=== PATIENT | male | born 1950 | race Caucasian/White ===

== ENCOUNTER 2017-10-01 12:43 | Inpatient (IN) | payer MEDICARE ==
[2017-10-01] VITALS (11 sets, daily range): BP systolic 121–153; BP diastolic 63–89; PULSE 74–103; RESP 16–20; TEMP 98.9–100.5; O2SAT 97–100
[~2017-10-01] VITALS: Ht 170.2 cm; Wt 79.4 kg
[~2017-10-01 12:43] MED LIST: [UNRECOGNIZED DRUG - REMARK]
[2017-10-01] MEDS ORDERED: IOHEXOL 350 MG/ML 100 ML BTL (for Cath Lab) OTHER ONE (12:44)
[2017-10-01] MEDS ORDERED: TOFA5TAB PO (13:30)
[2017-10-01] MEDS ORDERED: NITROGLYCERIN 0.4 MG SL 25 TABS/BTL SL STA (13:31)
[2017-10-01] MEDS ORDERED: HEPARIN SODIUM - IV 10,000 UNITS/10 ML VIAL IV PUSH STA (13:31)
[2017-10-01] MEDS ORDERED: ASPIRIN 81 MG CHEW TAB PO STA (13:31)
--- NOTE | 2017-10-01 13:33 | PD ---
HPI Chief Complaint: Chest Pain Time Seen by Provider: 13:19 Travel History International Travel<30 days: No Contact w/Intl Traveler<30days: No Traveled to known affect area: No History of Present Illness HPI Patient presented to the emergency department today because he had a redness to his butt cheek which apparently on Wednesday he was bitten by a spider? He had developed redness around his left buttock. Once I get the patient to focus about his chest discomfort, patient stated that he has had intermittent chest tightness since 5 AM this morning and it became more consistent and persistent over the last 2 hours, nonradiating, 5 out of 10, some slight shortness of breath. Patient denies any aggravating or alleviating factors. Patient denies any associated factors such as fever cough Place syndrome of [address] 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 Allergy to penicillin and statins both of them cause hives Past surgical history patient denies past medical Past medical history significant for hypercholesterolemia hypertension and the patient is a half a pack smoker daily PFSH Past Medical History Diminished Hearing: No Kidney Stones: Yes Immunizations Current: No Ulcer: Yes (COLITIS) Tetanus Vaccination: Unknown Social History Alcohol Use: Yes (2 DRINKS DAILY) Tobacco Use: Yes (1/2 PPD) Substance Use: No Allergies-Medications (Allergen,Severity, Reaction): Coded Allergies: penicillin G (Unverified Allergy, Severe, Hives, 10/02/17) Patient reports to me he has tolerated Keflex in past with no side effects. Uncoded Allergies: STATINS (Adverse Reaction, Intermediate, CRAMPS IN LEGS AND BACK, 01/24/13) Reported Meds & Prescriptions Reported Meds & Active Scripts Active Reported Xeljanz (Tofacitinib) 5 Mg Tab 10 Mg PO BID Review of Systems General / Constitutional: No: Fever Eyes: No: Visual changes HENT: No: Headaches Cardiovascular: Positive: Chest Pain or Discomfort Respiratory: No: Shortness of Breath Gastrointestinal: No: Abdominal Pain Genitourinary: No: Dysuria Musculoskeletal: No: Pain Skin: No Rash Neurologic: No: Weakness Psychiatric: No: Depression Endocrine: No: Polydipsia Hematologic/Lymphatic: No: Easy Bruising Physical Exam Narrative GENERAL: SKIN: Warm and dry. HEAD: Atraumatic. Normocephalic. EYES: Pupils equal and round. No scleral icterus. No injection or drainage. ENT: No nasal bleeding or discharge. Mucous membranes pink and moist. NECK: Trachea midline. No JVD. CARDIOVASCULAR: Regular rate and rhythm. RESPIRATORY: No accessory muscle use. Clear to auscultation. Breath sounds equal bilaterally. GASTROINTESTINAL: Abdomen soft, non-tender, nondistended. LEFT GLUTEUS REGION HAS PUNCTURE WITH CELLULITIC CHANGES ORANGE SIZE IN DIAMETER MUSCULOSKELETAL: Extremities without clubbing, cyanosis, or edema. No obvious deformities. NEUROLOGICAL: Awake and alert. No obvious cranial nerve deficits. Motor grossly within normal limits. Five out of 5 muscle strength in the arms and legs. Normal speech. PSYCHIATRIC: Appropriate mood and affect; insight and judgment normal. Data Data Last Documented VS Vital Signs Date Time Temp Pulse Resp B/P (MAP) Pulse Ox O2 Delivery O2 Flow Rate FiO2 10/01/17 15:06 84 16 121/63 (82) 100 10/01/17 13:23 Room Air 10/01/17 12:46 98.9 Orders Orders Electrocardiogram (10/01/17 13:03) Complete Blood Count With Diff (10/01/17 13:03) Basic Metabolic Panel (Bmp) (10/01/17 13:03) Ckmb (Isoenzyme) Profile (10/01/17 13:03) Troponin I (10/01/17 13:03) Nitroglycerin Sl (Nitrostat Sl) (10/01/17 13:31) Heparin Inj (Heparin Inj) (10/01/17 13:31) Metoprolol Tartrate Inj (Lopressor Inj) (10/01/17 13:45) Aspirin Chew (Aspirin Chew) (10/01/17 13:31) Cardiac Catheterization (10/01/17 ) I-Stat Profile (10/01/17 13:20) Chest, Single Ap (10/01/17 ) Vital Signs (Adult) Q15MX4,Q30MX4,Q1HX4 (10/01/17 14:33) Activity Bed Rest (10/01/17 14:33) Activity Oob Ad Nini (10/01/17 14:33) Instruction (10/01/17 14:33) Diet Heart Healthy (10/01/17 Dinner) Notify Dr: Other (10/01/17 14:33) ^ Teach Patient (10/01/17 14:33) [facility] (10/01/17 14:45) Bacitracin Oint Packet (Bacitracin Oint (10/01/17 14:45) Consult Hospitalist (10/01/17 ) Electronic System Engineer / Telemetry SHEELA.Q8H (10/01/17 14:33) Iohexol 350 Inj (Clin Nurse) (Omnipaque 35 (10/01/17 12:44) Admit To Inpatient (10/01/17 ) Inpatient Certification (10/01/17 ) Physician Name Changes (10/01/17 ) Admit Order (Ed Use Only) (10/01/17 15:10) (Hub Use Only)Inp Phy Cons/Ref (10/01/17 ) ^ Other Nursing Orders (10/01/17 15:18) Us Soft Tissue (10/01/17 ) Vancomycin Consult Pharmacy (Vancomycin (10/01/17 15:30) Acetaminophen (Tylenol) (10/01/17 15:30) Ondansetron Inj (Zofran Inj) (10/01/17 15:30) Acetamin-Hydrocod 325-5 Mg ([place] 5-325 (10/01/17 15:30) Alcohol Withdrawal Asmt-Ciwa Q4HX18 (10/01/17 15:20) ^ Seizure Precautions (10/01/17 15:20) Sodium Chloride 0.9% Flush (Ns Flush) (10/01/17 15:30) Sodium Chloride 0.9% Flush (Ns Flush) (10/01/17 21:00) Flumazenil Inj (Romazicon Inj) (10/01/17 15:30) Lorazepam (Ativan) (10/01/17 15:30) Lorazepam Inj (Ativan Inj) (10/01/17 15:30) Lorazepam (Ativan) (10/01/17 15:30) Lorazepam Inj (Ativan Inj) (10/01/17 15:30) Lorazepam Inj (Ativan Inj) (10/01/17 15:30) Lorazepam Inj (Ativan Inj) (10/01/17 15:30) CKMB (10/01/17 19:10) CKMB% (10/01/17 19:10) Echo 2d Comp With Doppler (10/02/17 ) Labs Laboratory Tests Test 10/01/17 13:20 10/01/17 13:30 Bedside Hemoglobin 17.3 G/DL Bedside Hematocrit 51.0 % Bedside Sodium 136 MMOL/L Bedside Potassium 6.0 MMOL/L Bedside Chloride 100 MMOL/L Bedside Blood Urea Nitrogen 15 MG/DL Bedside Creatinine 1.2 MG/DL Bedside Glucose 248 MG/DL White Blood Count 9.7 TH/MM3 Red Blood Count 5.16 MIL/MM3 Hemoglobin 16.8 GM/DL Hematocrit 49.2 % Mean Corpuscular Volume 95.3 FL Mean Corpuscular Hemoglobin 32.6 PG Mean Corpuscular Hemoglobin Concent 34.2 % Red Cell Distribution Width 14.1 % Platelet Count 211 TH/MM3 Mean Platelet Volume 9.6 FL Neutrophils (%) (Auto) 90.2 % Lymphocytes (%) (Auto) 2.0 % Monocytes (%) (Auto) 6.7 % Eosinophils (%) (Auto) 1.1 % Basophils (%) (Auto) 0.0 % Neutrophils # (Auto) 8.7 TH/MM3 Lymphocytes # (Auto) 0.2 TH/MM3 Monocytes # (Auto) 0.7 TH/MM3 Eosinophils # (Auto) 0.1 TH/MM3 Basophils # (Auto) 0.0 TH/MM3 CBC Comment DIFF FINAL Differential Comment MDM Medical Decision Making Medical Screen Exam Complete: Yes Emergency Medical Condition: Yes Medical Record Reviewed: Yes Interpretation(s) EKG #1 1309 /V2 STEMI, WITH ST DEPRESSIONS INFERIORLY EKG#2 1328 /V2 STEM[address] DEPRESSIONS INFERIORLY STEMI ALERT CALLED [facility] RETURNED CALL AT 1334 AND ACCEPTED, SENT TO [facility] DR HANDY IS ON HIS WAY IN. Differential Diagnosis STEMI V NONSTEMI V PNA V PTX V CELLULITIS Narrative Course Patient sent to Clin Nurse at 1342, Dr. Handy already aware and on his way. Diagnosis Primary Impression: Acute ST elevation myocardial infarction (STEMI) of septum Additional Impression: Cellulitis, gluteal Admitting Information Admitting Physician Requests: Observation Darrin Noriega MD Oct 01, 2017 13:33
[2017-10-01] MEDS ORDERED: METOPROLOL TARTRATE 5 MG/5 ML VIAL IV PUSH SCH (13:45)
[2017-10-01 13:51] LABS: AUTOMATED NEUTROPHIL # 8.7 TH/MM3 (1.8-7.7); EOSINOPHIL # 0.1 TH/MM3 (0-0.4); EOSINOPHIL % 1.1 % (0.0-4.0); HEMATOCRIT 49.2 % (39.0-51.0); HEMOGLOBIN 16.8 GM/DL (13.0-17.0); LYMPHOCYTE # 0.2 TH/MM3 (1.0-4.8); MEAN CELL VOLUME 95.3 FL (80.0-100.0); MEAN CORPUSCULAR HEMOGLOBIN 32.6 PG (27.0-34.0); MEAN CORPUSCULAR HGB CONC 34.2 % (32.0-36.0); MEAN PLATELET VOLUME 9.6 FL (7.0-11.0); MONO % 6.7 % (0.0-8.0); MONOCYTE # 0.7 TH/MM3 (0-0.9); NEUT % 90.2 % (16.0-70.0); PLATELET COUNT 211 TH/MM3 (150-450); RED BLOOD COUNT 5.16 MIL/MM3 (4.50-5.90); RED CELL DISTRIBUTION WIDTH 14.1 % (11.6-17.2); WHITE BLOOD COUNT 9.7 TH/MM3 (4.0-11.0)
--- NOTE | 2017-10-01 14:04 | RADRPT ---
EXAM DATE/TIME: 10/01/2017 13:37 [facility] COMPARISON: No previous studies available for comparison. INDICATIONS : Stemi alert. MEDICAL HISTORY : None. SURGICAL HISTORY : None. ENCOUNTER: Initial ACUITY: 1 day PAIN SCORE: 10/10 LOCATION: Left upper chest FINDINGS: A single view of the chest demonstrates the lungs to be symmetrically aerated without evidence of mas s, infiltrate or effusion. The cardiomediastinal contours are unremarkable. Osseous structures are intact. CONCLUSION: No acute disease. Mynor Dyer MD FACR on October 01, 2017 at 14:02 Board Certified Radiologist. This report was verified electronically.
[2017-10-01] MEDS ORDERED: BACITRACIN OINT 0.9 GM PKT TOP ONE (14:45)
[2017-10-01] MEDS ORDERED: MISC INFORMATION XX ONE (14:45)
[2017-10-01] MEDS ORDERED: ACETAMINOPHEN/HYDROcodone 325 MG/5 MG TAB PO PRN (15:30)
[2017-10-01] MEDS ORDERED: LORazepam 2 MG/ML VIAL IV PUSH PRN ×4 (15:30)
[2017-10-01] MEDS ORDERED: VANCOMYCIN INJ 1,000 MG in SODIUM CHLOR 0.9% 250 ML INJ 250 ML IV SCH (15:30)
[2017-10-01] MEDS ORDERED: LORazepam 2 MG TAB PO PRN (15:30)
[2017-10-01] MEDS ORDERED: ONDANSETRON HCL 4 MG/2 ML VIAL IV PRN (15:30)
[2017-10-01] MEDS ORDERED: SODIUM CHLORIDE 0.9% FLUSH 10 ML FLUSH IV FLUSH PRN (15:30)
[2017-10-01] MEDS ORDERED: Vancomycin Consult Pharmacy 1 EA OTHER SCH (15:30)
[2017-10-01] MEDS ORDERED: FLUMAZENIL 0.5 MG/5 ML VIAL IV PUSH PRN (15:30)
--- NOTE | 2017-10-01 16:06 | HHI.HP ---
HPI Service [facility] Hospitalists Primary Care Physician Augie Fan MD, PhD Admission Diagnosis Chest pain, cellulitis Chief Complaint: Chest pain, cellulitis Travel History International Travel<30 Days: No Contact w/Intl Traveler <30 Da: No Traveled to Known Affected Are: No History of Present Illness Mr. Golden is a pleasant 67 y/o WM with diet controlled diabetes mellitus, ulcerative colitis, Bo's esophagus, alcohol and tobacco use and AAA. [place] [facility] [place] complaints of SOB and chest pain that began this morning. He reports that the pain began around 5AM, described as intermittent chest tightness which became more consistent and persistent about 2 hours prior to evaluation in the ED. He had some associated shortness of breath. No reported palpitations, dizziness, weakness or diaphoresis. Pt had EKG changes in the ED consistent with ST depression in the V1/V2 leads. STEMI alert was called and the pt was taken to the helper animal laboratory for LHC. The case was discussed with Dr. Carvajal post-procedurally and it was reported that his coronary arteries were clear. Pt was also noted to have some cellulitis on his left buttock. He reports that he woke up 5 days ago with what he presumed was a spider bite on his left buttock. The skin around the spider bite became increasingly read and started spreading. He did have some noted drainage from the wound 2 days ago. He was seen by his PCP, Dr. Rosario, yesterday for the buttock cellulitis and was started on Doxy which he had taken three doses prior to admission to the hospital today. Pt had not noticed much improvement in the cellulitis prior to admission. He denies any fevers or chills. Denies any nausea/vomiting, diarrhea , reflux, dysphagia, or abdominal pain. He denies any further chest pain or SOB currently. Review of Systems Constitutional: DENIES: Fever, Chills Eyes: DENIES: Vision loss Ears, nose, mouth, throat: DENIES: Hearing loss, Vertigo Respiratory: DENIES: Cough, Shortness of breath Cardiovascular: COMPLAINS OF: Chest pain, DENIES: Lower Extremity Edema Gastrointestinal: DENIES: Abdominal pain, Diarrhea, Nausea, Vomiting Genitourinary: DENIES: Dysuria Musculoskeletal: DENIES: Joint pain, Neck pain Integumentary: COMPLAINS OF: Abnormal pigmentation Neurologic: DENIES: Headache Psychiatric: DENIES: Confusion Past Family Social History Past Medical History Diet controlled diabetes mellitus, felt to be related to steroid use Ulcerative colitis AAA Bo's esophagus Alcohol use Tobacco use Memory deficits, short term Hyperlipidemia 2D echo (02/22/12) - LVH - EF 60-65% - Mild aortic stenosis Past Surgical History ACL transplant, right knee Bilateral carpal tunnel release Vasectomy Reported Medications Xeljanz (Tofacitinib) 10 Mg PO BID Tylenol PM ii PO HS Doxycycline 100mg po BID (started 09/30/17) Allergies: Coded Allergies: penicillin G (Unverified Allergy, Severe, 10/01/17) Uncoded Allergies: STATINS (Adverse Reaction, Intermediate, CRAMPS IN LEGS AND BACK, 01/24/13) Family History Father with hx of HTN Social History (+)Tobacco use, smokes 1/2 ppd x 30+ years (+)Alcohol use, 2-3 mixed drinks every evening Denies any illicit drug use 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 SKIN: Erythema on the left buttock measuring about 5-6cm in diameter with some central induration, minimal tenderness to palpation HEENT: Atraumatic. Normocephalic. No temporal or scalp tenderness. No scleral icterus. No injection or drainage. Uvula midline. Airway patent. NECK: Trachea midline, supple, nontender. CARDIO: Regular. RESP: CTA bilaterally. No wheezes, rales, or rhonchi. ABD: +BS, soft, non-tender, nondistended. EXT: Extremities without clubbing, cyanosis, or edema. NEURO: Awake and alert. Motor and sensory grossly within normal limits. Normal speech. Laboratory Laboratory Tests Test 10/01/17 13:20 10/01/17 13:30 Bedside Hemoglobin 17.3 Bedside Hematocrit 51.0 Bedside Sodium 136 Bedside Potassium 6.0 Bedside Chloride 100 Bedside Blood Urea Nitrogen 15 Bedside Creatinine 1.2 Bedside Glucose 248 White Blood Count 9.7 Red Blood Count 5.16 Hemoglobin 16.8 Hematocrit 49.2 Mean Corpuscular Volume 95.3 Mean Corpuscular Hemoglobin 32.6 Mean Corpuscular Hemoglobin Concent 34.2 Red Cell Distribution Width 14.1 Platelet Count 211 Mean Platelet Volume 9.6 Neutrophils (%) (Auto) 90.2 Lymphocytes (%) (Auto) 2.0 Monocytes (%) (Auto) 6.7 Eosinophils (%) (Auto) 1.1 Basophils (%) (Auto) 0.0 Neutrophils # (Auto) 8.7 Lymphocytes # (Auto) 0.2 Monocytes # (Auto) 0.7 Eosinophils # (Auto) 0.1 Basophils # (Auto) 0.0 CBC Comment DIFF FINAL Differential Comment Result Diagram: 10/01/17 1330 Imaging Last Impressions Chest X-Ray 10/01/17 0000 Signed Impressions: Service Date/Time: Sunday, October 01, 2017 13:37 - CONCLUSION: No acute disease. Mynor Dyer MD FACR Caprini VTE Risk Assessment Caprini VTE Risk Assessment: Mod/High Risk (score >= 2) Caprini Risk Assessment Model Point Value = 1 Point Value = 2 Point Value = 3 Point Value = 5 Age 41-60 Minor surgery BMI > 25 kg/m2 Swollen legs Varicose veins or History of unexplained or recurrent spontaneous Oral contraceptives or hormone replacement Sepsis (< 1 month) Serious lung disease, including pneumonia (< 1 month) Abnormal pulmonary function Acute myocardial infarction Congestive heart failure (< 1 month) History of inflammatory bowel disease Medical patient at bed rest Age 61-74 Arthroscopic surgery Major open surgery (> 45 min) Laparoscopic surgery (> 45 min) Malignancy Confined to bed (> 72 hours) Immobilizing plaster cast Central venous access Age >= 75 History of VTE Family history of VTE Factor V Leiden Prothrombin [id number] Lupus anticoagulant Anticardiolipin antibodies Elevated serum homocysteine Heparin-induced thrombocytopenia Other congenital or acquired thrombophilia Stroke (< 1 month) Elective arthroplasty Hip, pelvis, or leg fracture Acute spinal cord injury (< 1 month) Prophylaxis Regimen Total Risk Factor Score Risk Level Prophylaxis Regimen 0-1 Low Early ambulation 2 Moderate Order ONE of the following: *Sequential Compression Device (SCD) *Heparin 5000 units SQ BID 3-4 Higher Order ONE of the following medications: *Heparin 5000 units SQ TID *Enoxaparin/Lovenox 40 mg SQ daily (WT < 150 kg, CrCl > 30 mL/min) *Enoxaparin/Lovenox 30 mg SQ daily (WT < 150 kg, CrCl > 10-29 mL/min) *Enoxaparin/Lovenox 30 mg SQ BID (WT < 150 kg, CrCl > 30 mL/min) AND/OR *Sequential Compression Device (SCD) 5 or more Highest Order ONE of the following medications: *Heparin 5000 units SQ TID (Preferred with Epidurals) *Enoxaparin/Lovenox 40 mg SQ daily (WT < 150 kg, CrCl > 30 mL/min) *Enoxaparin/Lovenox 30 mg SQ daily (WT < 150 kg, CrCl > 10-29 mL/min) *Enoxaparin/Lovenox 30 mg SQ BID (WT < 150 kg, CrCl > 30 mL/min) AND *Sequential Compression Device (SCD) Assessment and Plan Problem List: (1) Chest pain ICD Codes: R07.9 - Chest pain, unspecified Status: Acute Plan: - Pt is a 67 y/o WM with diet controlled diabetes mellitus, ulcerative colitis, Bo's esophagus, alcohol and tobacco use and AAA. - Pt reported to the [place] [facility] [place] complaints of SOB and chest pain that began this morning. He reports that the pain began around 5AM, described as intermittent chest tightness which became more consistent and persistent about 2 hours prior to evaluation in the ED. He had some associated shortness of breath. - In the ED the pt had EKG changes with ST depression in the V1/V2 leads. STEMI alert was called and the pt was taken to the helper animal laboratory for [facility]. - The case was discussed with Dr. Carvajal post-procedurally and it was reported that his coronary arteries were clear. - he has hx of valvular heart disease, specifically aortic valve stenosis so 2D echo is ordered - Cardiology is following. (2) Cellulitis, gluteal ICD Codes: L03.317 - Cellulitis of buttock Status: Acute Plan: - Pt reported that he woke up 5 days ago with what he presumed was a spider bite on his left buttock. - The skin around the spider bite became increasingly read and started spreading. He did have some noted drainage from the wound 2 days ago. - He was seen by his PCP, Dr. Rosario, yesterday for the buttock cellulitis and was started on Doxy BID which he had taken three doses prior to admission to the hospital. - Start Vancomycin IV, pharmacy to consult - Nurse instructed to draw a line around the area of cellulitis to monitor to changes - Soft tissue US to assess for possible underlying abscess - Pain control PRN (3) Aortic valve stenosis ICD Codes: I35.0 - Nonrheumatic aortic (valve) stenosis Status: Chronic Plan: - See above - 2D echo ordered (4) Ulcerative colitis ICD Codes: K51.90 - Ulcerative colitis, unspecified, without complications Status: Chronic Plan: - Pt takes Xeljanz 10mg po BID at home, this is to be resumed (5) Alcohol use ICD Codes: Z78.9 - Other specified health status Status: Chronic Plan: - He is a daily alcohol user - CIWA protocol ordered - EtOH withdrawal precautions (6) Tobacco use ICD Codes: Z72.0 - Tobacco use Status: Chronic Plan: - recommended cessation Physician Certification 2 Midnight Certification Type: Admission for Inpatient Services Order for Inpatient Services The services are ordered in accordance with Medicare regulations or non- Medicare payer requirements, as applicable. In the case of services not specified as inpatient-only, they are appropriately provided as inpatient services in accordance with the 2-midnight benchmark. Estimated LOS (days): 3 3 days is the estimated time the patient will need to remain in the hospital, assuming treatment plan goals are met and no additional complications. Post-Hospital Plan: Home Daphney Clark Oct 01, 2017 16:06
[2017-10-01] MEDS ORDERED: VANCOMYCIN INJ 1,250 MG in SODIUM CHLOR 0.9% 250 ML INJ 250 ML IV ONE (17:00)
--- NOTE | 2017-10-01 18:45 | RADRPT ---
EXAM DATE/TIME: 10/01/2017 18:31 [facility] COMPARISON: No previous studies available for comparison. INDICATIONS : Abscess. MEDICAL HISTORY : Gastroesophageal reflux disease. Migraine. Ulcer. Kidney stones. Diabetes. SURGICAL HISTORY : Carpal tunnel syndrome. Right knee surgery. ENCOUNTER: Initial ACUITY: 2 weeks PAIN SCORE: 3/10 LOCATION: Left buttcocks. AREA EVALUATED: Left buttocks. FINDINGS: MASSES: None. FLUID COLLECTIONS: None. OTHER: Slightly increased vascularity in the superficial subcutaneous soft tissues on the left side compared to the right. CONCLUSION: Slight increase in the vascularity of the superficial subcutaneous soft tissues of the left buttocks. Otherwise no focal fluid collection or soft tissue mass Ronal Peoples MD on October 01, 2017 at 18:41 Board Certified Radiologist. This report was verified electronically.
[2017-10-01 19:49] LABS: BICARBONATE 26.9 MEQ/L (21.0-32.0); CALCIUM 8.9 MG/DL (8.5-10.1); CHLORIDE 101 MEQ/L (98-107); CREATININE 1.44 MG/DL (0.60-1.30); GLOMERULAR FILTRATION RATE 49 ML/MIN (>89); GLUCOSE,RANDOM 193 MG/DL (74-106); SODIUM (NA) 136 MEQ/L (136-145)
[2017-10-01 20:28] LABS: BLOOD UREA NITROGEN 11 MG/DL (7-18); TROPONIN I LESS THAN 0.02 NG/ML (0.02-0.05)
[2017-10-01] MEDS: SODIUM CHLORIDE 0.9% FLUSH 10 ML FLUSH IV FLUSH SCH (21:00)
[2017-10-01] MEDS ORDERED: TOFACITINIB 10 MG PO SCH (21:00)
[2017-10-01] MEDS ORDERED: CALCIUM CARBONATE 500 MG CHEWABLE TAB CHEW PRN (21:15)
[2017-10-02] VITALS (28 sets, daily range): BP systolic 105–158; BP diastolic 56–88; PULSE 61–100; RESP 12–20; TEMP 98.4–102.8; O2SAT 94–97
[2017-10-02 05:12] LABS: BICARBONATE 26.9 MEQ/L (21.0-32.0); CREATININE 1.23 MG/DL (0.60-1.30)
[2017-10-02] MEDS ORDERED: ALUMINUM/MAGNESIUM/SIMETH 30 ML CUP PO PRN (08:30)
--- NOTE | 2017-10-02 08:47 | HHI.PR ---
Subjective Remarks spreading rash over buttock and lower back. some pain with sitting but not severe. no n/v/f/c Objective Vitals heart reg lungcta abd s/nt ext no edema right buttock central lesion with spreading erythema over left buttock.. and blotchy area over right buttock and lower back..not very tender. no fluctuance some gluteal fold erythema Vital Signs Date Time Temp Pulse Resp B/P (MAP) Pulse Ox O2 Delivery O2 Flow Rate FiO2 10/02/17 06:17 63 10/02/17 05:06 61 10/02/17 04:07 73 10/02/17 03:54 98.6 65 137/74 (95) 97 10/02/17 03:49 62 10/02/17 02:06 68 10/02/17 01:00 68 10/02/17 00:42 98.4 74 118/69 (85) 97 10/02/17 00:00 72 10/01/17 23:00 74 10/01/17 22:00 82 10/01/17 21:00 84 10/01/17 20:00 88 10/01/17 20:00 100.5 88 129/70 (89) 97 10/01/17 19:00 87 10/01/17 18:05 84 10/01/17 17:20 76 10/01/17 16:00 82 10/01/17 15:06 84 16 121/63 (82) 100 10/01/17 13:23 98 18 99 Room Air 10/01/17 13:23 98 20 153/79 (103) 100 Room Air 10/01/17 12:46 98.9 103 16 149/89 (109) 98 Result Diagram: 10/01/17 1330 10/02/17 0323 Imaging Last Impressions Chest X-Ray 10/01/17 0000 Signed Impressions: Service Date/Time: Sunday, October 01, 2017 13:37 - CONCLUSION: No acute disease. Mynor Dyer MD FACR A/P Problem List: (1) Chest pain ICD Codes: R07.9 - Chest pain, unspecified Status: Acute Plan: - Pt is a 67 y/o WM with diet controlled diabetes mellitus, ulcerative colitis, Bo's esophagus, alcohol and tobacco use and AAA. - Pt reported to the ED at [facility] [place] with complaints of SOB and chest pain that began this morning. He reports that the pain began around 5AM, described as intermittent chest tightness which became more consistent and persistent about 2 hours prior to evaluation in the ED. He had some associated shortness of breath. - In the ED the pt had EKG changes with ST depression in the V1/V2 leads. STEMI alert was called and the pt was taken to the director of cath lab for LHC. - The case was discussed with Dr. Carvajal post-procedurally and it was reported that his coronary arteries were clear. - he has hx of valvular heart disease, specifically aortic valve stenosis so 2D echo is ordered - Cardiology is following. (2) Cellulitis, gluteal ICD Codes: L03.317 - Cellulitis of buttock Status: Acute Plan: - Pt reported that he woke up 5 days ago with what he presumed was a spider bite on his left buttock...but not confirmed - The skin around the spider bite became increasingly read and started spreading. He did have some noted drainage from the wound 2 days ago. - He was seen by his PCP, Dr. Fan on 09/30 for the buttock cellulitis and was started on Doxy BID which he had taken three doses prior to admission to the hospital. - Started Vancomycin IV on 10/01.... today the area of redness is spreading beyond the marked lines and now includes lower back. soft tissue u/s neg for abscess pt is immunosuppressed and will hold xeljanz ask ID opinion. pt allergic to pcn's (3) Aortic valve stenosis ICD Codes: I35.0 - Nonrheumatic aortic (valve) stenosis Status: Chronic Plan: - See above - 2D echo ordered (4) Ulcerative colitis ICD Codes: K51.90 - Ulcerative colitis, unspecified, without complications Status: Chronic Plan: - Pt takes Xeljanz 10mg po BID at home, hold (5) Alcohol use ICD Codes: Z78.9 - Other specified health status Status: Chronic Plan: - He is a daily alcohol user - CIWA protocol ordered - EtOH withdrawal precautions (6) Tobacco use ICD Codes: Z72.0 - Tobacco use Status: Chronic Plan: - recommended cessation Darshan Salazar MD Oct 02, 2017 08:47
[2017-10-02] MEDS ORDERED: CLINDAMYCIN INJ 900 MG in SODIUM CHLORIDE 0.9% INJ 100 ML IV ONE (09:00)
[2017-10-02] MEDS: MUPIROCIN 2% OINT 22 GM TUBE TOPICAL SCH ×3 (09:53→21:32)
[2017-10-02] MEDS: PANTOPRAZOLE SOD 40 MG DELAYED RELEASE TAB PO SCH ×2 (09:53→21:32)
[2017-10-02] MEDS: SODIUM CHLORIDE 0.9% FLUSH 10 ML FLUSH IV FLUSH SCH ×2 (09:53→21:00)
[2017-10-02] MEDS ORDERED: PNEUMOCOCCAL POLYVALENT INJ 25 MCG/0.5 ML SYR IM ONE (10:00)
[2017-10-02] MEDS: LORazepam 1 MG TAB PO PRN (11:59)
--- NOTE | 2017-10-02 13:19 | PD.ID.CON ---
History of Present Illness Service ID Consult Requested By Reason for Consult Evaluation and Mment of Sacral cellulitis. Primary Care Physician Augie Fan MD, PhD Diagnoses: History of Present Illness Mr. Golden is a pleasant 67 y/o WM with diet controlled diabetes mellitus, ulcerative colitis, Bo's esophagus, alcohol and tobacco use and AAA. Pt reported to the ED at [facility] with complaints of SOB and chest pain that began on morning of admission. STEMI alert was called and patient was s/b and underwent Cardiac cath [facility] and reportedly his coronary arteries are clear. Pt was also noted to have some cellulitis on his left buttock. He reports that he woke up 5 days ago with what he presumed was a spider bite on his left buttock. The skin around the spider bite became increasingly read and started spreading. He did have some noted drainage from the wound 2 days ago. He was seen by his PCP, Dr. Rosario, yesterday for the buttock cellulitis and was started on Doxy which he had taken three doses prior to admission to the hospital today. Pt had not noticed much improvement in the cellulitis prior to admission. He denies any fevers or chills. Denies any nausea/vomiting, diarrhea , reflux, dysphagia, or abdominal pain. He denies any further chest pain or SOB currently. Infectious Disease consulted for evaluation and Mment of Buttock sacral cellulitis increasing in size in an Immune compromised patient. Pertinent positives and negatives: denies any change in B/B Denies any perirectal pain or swelling. Denies any boils in the perineal or buttock region but he has significant amount of hair in the region. Review of Systems ROS Limitations: Poor Historian Past Family Social History Allergies: Coded Allergies: penicillin G (Unverified Allergy, Severe, Hives, 10/02/17) Patient reports to me he has tolerated Keflex in past with no side effects. Uncoded Allergies: STATINS (Adverse Reaction, Intermediate, CRAMPS IN LEGS AND BACK, 01/24/13) Past Medical History Diet controlled diabetes mellitus, felt to be related to steroid use Ulcerative colitis AAA Bo's esophagus Alcohol use Tobacco use Memory deficits, short term Hyperlipidemia Past Surgical History ACL transplant, right knee Bilateral carpal tunnel release Vasectomy Reported Medications Reports being on Doxycycline prior to admission. Reported Meds & Active Scripts Active Reported Xeljanz (Tofacitinib) 5 Mg Tab 10 Mg PO BID Active Ordered Medications Current Medications Medications (Trade) Dose Ordered Sig/Davie Route Start Time Stop Time Status Last Admin Pharmacy Profile Note 0 ml @ 0 mls/hr UNSCH OTHER 10/01/17 15:30 (Tylenol) 650 mg Q4H PRN PO 10/01/17 15:30 (Zofran Inj) 4 mg Q6H PRN IV 10/01/17 15:30 ([place] 5-325 Mg) 1 tab Q4H PRN PO 10/01/17 15:30 (NS Flush) 2 ml UNSCH PRN IV FLUSH 10/01/17 15:30 (NS Flush) 2 ml BID IV FLUSH 10/01/17 21:00 10/02/17 09:53 (Romazicon Inj) 0.2 mg Q1M PRN IV PUSH 10/01/17 15:30 (Ativan) 1 mg Q4H PRN PO 10/01/17 15:30 10/02/17 11:59 (Ativan Inj) 1 mg Q4H PRN IV PUSH 10/01/17 15:30 (Ativan) 2 mg Q2H PRN PO 10/01/17 15:30 (Ativan Inj) 2 mg Q2H PRN IV PUSH 10/01/17 15:30 (Ativan Inj) 2 mg Q1H PRN IV PUSH 10/01/17 15:30 (Ativan Inj) 2 mg Q15M PRN IV PUSH 10/01/17 15:30 Vancomycin/Sodium Chloride 200 ml @ 200 mls/hr Q24H IV 10/02/17 15:00 (Tums Chew) 1,000 mg Q4H PRN CHEW 10/01/17 21:15 10/01/17 21:32 Miscellaneous Information SPECIFIC LAB TO BE JOSH... ONCE ONCE .XX 10/03/17 14:45 10/03/17 14:46 (Bactroban 2% Oint) 1 applic Q8HR TOPICAL 10/02/17 08:30 10/02/17 09:53 (Protonix) 40 mg Q12HR PO 10/02/17 09:00 10/02/17 09:53 (Mag-Al Plus Susp Liq) 30 ml Q6H PRN PO 10/02/17 08:30 (Benadryl Inj) 25 mg Q4H PRN IM 10/02/17 13:30 Cefepime HCl 2000 mg/Sodium Chloride 100 ml @ 200 mls/hr Q12H IV 10/02/17 16:00 (Flagyl) 500 mg Q8HR PO 10/02/17 14:00 (Diflucan) 100 mg DAILY PO 10/02/17 13:30 Family History Father with hx of HTN Social History (+)Tobacco use, smokes 1/2 ppd x 30+ years (+)Alcohol use, 2-3 mixed drinks every evening. Plus 3 shots of hard drink each night. Denies any illicit drug use Pt is He works at a [employer] Physical Exam Vital Signs Vital Signs Date Time Temp Pulse Resp B/P (MAP) Pulse Ox O2 Delivery O2 Flow Rate FiO2 10/02/17 12:33 99.4 10/02/17 11:45 83 10/02/17 11:45 100.0 83 20 140/72 (94) 97 10/02/17 07:30 77 10/02/17 07:30 98.5 77 18 133/70 (91) 95 10/02/17 06:17 63 10/02/17 05:06 61 10/02/17 04:07 73 10/02/17 03:54 98.6 65 137/74 (95) 97 10/02/17 03:49 62 10/02/17 02:06 68 10/02/17 01:00 68 10/02/17 00:42 98.4 74 118/69 (85) 97 10/02/17 00:00 72 10/01/17 23:00 74 10/01/17 22:00 82 10/01/17 21:00 84 10/01/17 20:00 88 10/01/17 20:00 100.5 88 129/70 (89) 97 10/01/17 19:00 87 10/01/17 18:05 84 10/01/17 17:20 76 10/01/17 16:00 82 10/01/17 15:06 84 16 121/63 (82) 100 10/01/17 13:23 98 18 99 Room Air 10/01/17 13:23 98 20 153/79 (103) 100 Room Air Physical Exam GENERAL: This is a well-nourished, well-developed patient, in no apparent distress. SKIN: No rashes, ecchymoses or lesions. Cool and dry. HEAD: Atraumatic. Normocephalic. No temporal or scalp tenderness. EYES: Pupils equal round and reactive. Extraocular motions intact. No scleral icterus. No injection or drainage. ENT: Nose without bleeding, purulent drainage or septal hematoma. Throat without erythema, tonsillar hypertrophy or exudate. Uvula midline. Airway patent. NECK: Trachea midline. Supple, nontender, no meningeal signs. CARDIOVASCULAR: Regular rate and rhythm without murmurs, gallops, or rubs. RESPIRATORY: Clear to auscultation. Breath sounds equal bilaterally. No wheezes , rales, or rhonchi. GASTROINTESTINAL: Abdomen soft, non-tender, nondistended. MUSCULOSKELETAL: Extremities without clubbing, cyanosis, or edema. No joint tenderness, effusion, or edema noted. No calf tenderness. Negative Homans sign bilaterally. Left buttock cheek and sacral area with erythema and induration noted. Patient had several other satellite erythematous lesions on the back. NEUROLOGICAL: Awake and alert. Grossly non focal Psych cooperative IV line sites with no e.o infection. Laboratory Laboratory Tests Test 10/01/17 13:20 10/01/17 13:30 10/01/17 19:10 10/02/17 03:23 Bedside Hemoglobin 17.3 Bedside Hematocrit 51.0 Bedside Sodium 136 Bedside Potassium 6.0 Bedside Chloride 100 Bedside Blood Urea Nitrogen 15 Bedside Creatinine 1.2 Bedside Glucose 248 White Blood Count 9.7 Red Blood Count 5.16 Hemoglobin 16.8 Hematocrit 49.2 Mean Corpuscular Volume 95.3 Mean Corpuscular Hemoglobin 32.6 Mean Corpuscular Hemoglobin Concent 34.2 Red Cell Distribution Width 14.1 Platelet Count 211 Mean Platelet Volume 9.6 Neutrophils (%) (Auto) 90.2 Lymphocytes (%) (Auto) 2.0 Monocytes (%) (Auto) 6.7 Eosinophils (%) (Auto) 1.1 Basophils (%) (Auto) 0.0 Neutrophils # (Auto) 8.7 Lymphocytes # (Auto) 0.2 Monocytes # (Auto) 0.7 Eosinophils # (Auto) 0.1 Basophils # (Auto) 0.0 CBC Comment DIFF FINAL Differential Comment Blood Urea Nitrogen 11 12 Creatinine 1.44 1.23 Random Glucose 193 108 Calcium Level 8.9 9.0 Sodium Level 136 138 Potassium Level 3.8 3.7 Chloride Level 101 104 Carbon Dioxide Level 26.9 26.9 Anion Gap 8 7 Estimat Glomerular Filtration Rate 49 59 Total Creatine Kinase 104 Creatine Kinase MB 1.3 Troponin I LESS THAN 0.02 Result Diagram: 10/01/17 1330 10/02/17 0323 Imaging Last Impressions Soft Tissue Ultrasound 10/01/17 0000 Signed Impressions: Service Date/Time: Sunday, October 01, 2017 18:31 - CONCLUSION: Slight increase in the vascularity of the superficial subcutaneous soft tissues of the left buttocks. Otherwise no focal fluid collection or soft tissue mass Ronal Peoples MD Chest X-Ray 10/01/17 0000 Signed Impressions: Service Date/Time: Sunday, October 01, 2017 13:37 - CONCLUSION: No acute disease. Mynor Dyer MD FACR Assessment and Plan Assessment and Plan Left buttock and sacra cellulitis. Immune compromised host. Persistent fevers Alcoholism Chronic smoker. Ulcerative colitis on Immune suppressants. Penicillin allergy: reports hives but no respiratory symptoms. Recs: Continue Vanco IV (target trough 15-20) Start Cefepime IV Start Flagyl oral (while in hospital. thinks he will resume drinking. Explained to her would like to avoid Clindamycin due to risk of Cdiff). Start Diflucan oral. Follow cultures Follow clinically. Rayna Bacon MD Oct 02, 2017 13:19
[2017-10-02] MEDS ORDERED: diphenhydrAMINE HCL 50 MG/ML VIAL IM PRN (13:30)
[2017-10-02] MEDS ORDERED: diphenhydrAMINE HCL 50 MG/ML VIAL IV PUSH PRN (14:30)
[2017-10-02] MEDS: VANCOMYCIN 1 GM/200 ML PREMIX IV SCH (14:34)
[2017-10-02] MEDS: metroNIDAZOLE 500 MG TAB PO SCH ×2 (14:43→21:32)
[2017-10-02] MEDS: FLUCONAZOLE 100 MG TAB PO SCH (14:43)
[2017-10-02] MEDS: CEFEPIME INJ 2,000 MG in SODIUM CHLORIDE 0.9% INJ 100 ML IV SCH (16:11)
[2017-10-02] MEDS: ACETAMINOPHEN 325 MG TAB PO PRN (16:51)
[2017-10-03] VITALS (27 sets, daily range): BP systolic 93–124; BP diastolic 50–80; PULSE 75–102; RESP 12–18; TEMP 98.3–100.2; O2SAT 94–98
--- NOTE | 2017-10-03 00:08 | EKG ---
Date Performed: 10/01/2017 Time Performed: 13:28:43 PTAGE: 67 years EKG: Sinus rhythm WITH FIRST DEGREE AV BLOCK INDETERMINATE AXIS MARKED ST ELEVATION, CONSIDER SEPTAL INJURY TYPE 1 BRU GADA PATTERN, EXCLUDE RECENT INFARCTION, CABG, MYOCARDITIS OR DRUG EFFECT POSSIBLE ACUTE TN INTERPRET ATION BASED ON A DEFAULT AGE OF 40 YEARS Since the prior tracing, there has been no significant mantilla e DOCTOR: Jabari Fong Interpretating Date/Time 10/03/2017 00:07:21
--- NOTE | 2017-10-03 00:12 | EKG ---
Date Performed: 10/01/2017 Time Performed: 13:09:38 PTAGE: 67 years EKG: SINUS TACHYCARDIA WITH FIRST DEGREE AV BLOCK MARKED ST ELEVATION, CONSIDER SEPTAL INJURY TY PE 1 BRUGADA PATTERN, EXCLUDE RECENT INFARCTION, CABG, MYOCARDITIS OR DRUG EFFECT POSSIBLE ACUTE PA PREVIOUS TRACING : 10/04/1998 12.40 Compared to prior tracing, now with RBBB pattern and ST elevation DOCTOR: Jabari Fong Interpretating Date/Time 10/03/2017 00:09:51
[2017-10-03] MEDS: ACETAMINOPHEN 325 MG TAB PO PRN ×2 (04:04→20:44)
[2017-10-03] MEDS: CEFEPIME INJ 2,000 MG in SODIUM CHLORIDE 0.9% INJ 100 ML IV SCH ×2 (04:04→16:19)
[2017-10-03 04:34] LABS: AUTOMATED NEUTROPHIL # 7.5 TH/MM3 (1.8-7.7); BASOPHIL % 0.3 % (0.0-2.0); EOSINOPHIL # 0.1 TH/MM3 (0-0.4); EOSINOPHIL % 0.9 % (0.0-4.0); HEMATOCRIT 45.7 % (39.0-51.0); HEMOGLOBIN 15.8 GM/DL (13.0-17.0); LYMPH % 2.6 % (9.0-44.0); LYMPHOCYTE # 0.2 TH/MM3 (1.0-4.8); MEAN CELL VOLUME 93.8 FL (80.0-100.0); MEAN CORPUSCULAR HEMOGLOBIN 32.4 PG (27.0-34.0); MEAN CORPUSCULAR HGB CONC 34.6 % (32.0-36.0); MEAN PLATELET VOLUME 9.3 FL (7.0-11.0); MONO % 9.8 % (0.0-8.0); MONOCYTE # 0.9 TH/MM3 (0-0.9); NEUT % 86.4 % (16.0-70.0); PLATELET COUNT 130 TH/MM3 (150-450); RED BLOOD COUNT 4.88 MIL/MM3 (4.50-5.90); RED CELL DISTRIBUTION WIDTH 13.8 % (11.6-17.2); WHITE BLOOD COUNT 8.7 TH/MM3 (4.0-11.0)
[2017-10-03] MEDS: MUPIROCIN 2% OINT 22 GM TUBE TOPICAL SCH ×3 (06:00→16:19)
[2017-10-03] MEDS: metroNIDAZOLE 500 MG TAB PO SCH ×3 (06:00→23:02)
[2017-10-03] MEDS: PANTOPRAZOLE SOD 40 MG DELAYED RELEASE TAB PO SCH ×2 (08:36→20:44)
[2017-10-03] MEDS: FLUCONAZOLE 100 MG TAB PO SCH (08:36)
[2017-10-03] MEDS: SODIUM CHLORIDE 0.9% FLUSH 10 ML FLUSH IV FLUSH SCH ×2 (08:39→20:44)
--- NOTE | 2017-10-03 09:13 | HHI.PR ---
Subjective Remarks concerned. mild extension of rash overnight. Objective Vitals heart reg lung cta abd s/nt ext left buttock erythema. mild extension past the drawn lines. small area on right buttock and post thigh and low back. Vital Signs Date Time Temp Pulse Resp B/P (MAP) Pulse Ox O2 Delivery O2 Flow Rate FiO2 10/03/17 06:00 87 10/03/17 05:04 12 10/03/17 05:00 91 10/03/17 04:00 96 10/03/17 03:00 100.0 100 12 124/80 (95) 94 10/03/17 03:00 100 10/03/17 02:00 102 10/03/17 01:00 96 10/03/17 00:00 100 10/02/17 23:00 100 10/02/17 23:00 101.3 100 12 131/71 (91) 94 10/02/17 22:00 96 10/02/17 21:00 96 10/02/17 20:00 96 10/02/17 19:00 100 10/02/17 19:00 100.9 100 12 105/56 (72) 94 10/02/17 18:00 90 10/02/17 17:00 88 10/02/17 16:00 86 10/02/17 16:00 102.8 87 20 158/88 (111) 95 10/02/17 15:00 86 10/02/17 14:00 88 10/02/17 13:00 84 10/02/17 12:33 99.4 10/02/17 12:00 78 10/02/17 11:45 83 10/02/17 11:45 100.0 83 20 140/72 (94) 97 10/02/17 11:00 78 10/02/17 10:00 80 Result Diagram: 10/03/17 0338 10/02/17 0323 Imaging Last Impressions Chest X-Ray 10/01/17 0000 Signed Impressions: Service Date/Time: Sunday, October 01, 2017 13:37 - CONCLUSION: No acute disease. Mynor Dyer MD FACR A/P Problem List: (1) Chest pain ICD Codes: R07.9 - Chest pain, unspecified Status: Acute Plan: - Pt is a 67 y/o WM with diet controlled diabetes mellitus, ulcerative colitis, Bo's esophagus, alcohol and tobacco use and AAA. - Pt reported to the ED at [facility] with complaints of SOB and chest pain that began this morning. He reports that the pain began around 5AM, described as intermittent chest tightness which became more consistent and persistent about 2 hours prior to evaluation in the ED. He had some associated shortness of breath. - In the ED the pt had EKG changes with ST depression in the V1/V2 leads. STEMI alert was called and the pt was taken to the blood bank laboratory technician for LHC. - The case was discussed with Dr. Carvajal post-procedurally and it was reported that his coronary arteries were clear. - he has hx of valvular heart disease, specifically aortic valve stenosis so 2D echo is ordered - Cardiology is following. -echo on 10/02 mod/severe AVS (2) Cellulitis, gluteal ICD Codes: L03.317 - Cellulitis of buttock Status: Acute Plan: - Pt reported that he woke up 5 days ago with what he presumed was a spider bite on his left buttock...but not confirmed - The skin around the spider bite became increasingly read and started spreading. He did have some noted drainage from the wound 2 days ago. - He was seen by his PCP, Dr. Fan on 09/30 for the buttock cellulitis and was started on Doxy BID which he had taken three doses prior to admission to the hospital. - Started Vancomycin IV on 10/01....cefepime/flagyl/diflucan added on 10/02 today the area of redness is spreading beyond the marked lines slightly soft tissue u/s neg for abscess pt is immunosuppressed and will hold xeljanz appreciate ID input. (3) Aortic valve stenosis ICD Codes: I35.0 - Nonrheumatic aortic (valve) stenosis Status: Chronic Plan: - See above - 2D echo ordered (4) Ulcerative colitis ICD Codes: K51.90 - Ulcerative colitis, unspecified, without complications Status: Chronic Plan: - Pt takes Xeljanz 10mg po BID at home, hold (5) Alcohol use ICD Codes: Z78.9 - Other specified health status Status: Chronic Plan: - He is a daily alcohol user - CIWA protocol ordered - EtOH withdrawal precautions (6) Tobacco use ICD Codes: Z72.0 - Tobacco use Status: Chronic Plan: - recommended cessation Darshan Salazar MD Oct 03, 2017 09:13
--- NOTE | 2017-10-03 10:40 | ECHRPT ---
Indication: cp CONCLUSIONS Normal left ventricular size. The left ventricular systolic function is low normal with an estimated ejection fraction in the rang e of 50- 55%. Mild mitral valve regurgitation. Moderate to severe aortic valve stenosis. Aortic valve mean gradient is 49 mmHg. Vmax 433 There is mild tricuspid valve regurgitation. The pulmonary valve is not well visualized. BP: / HR: Rhythm: MEASUREMENTS (Male / Female) Normal Values Technical Quality:Fair 2D ECHO LV Diastolic Diameter PLAX 4.8 cm 4.2 - 5.9 / 3.9 - 5.3 cm LV Systolic Diameter PLAX 3.6 cm IVS Diastolic Thickness 1.5 cm 0.6 - 1.0 / 0.6 - 0.9 cm LVPW Diastolic Thickness 0.9 cm 0.6 - 1.0 / 0.6 - 0.9 cm LV Relative Wall Thickness 0.5 RV Internal Dim ED PLAX 2.9 cm LVOT Diameter 2.7 cm M-MODE Aortic Root Diameter MM 2.9 cm LA Systolic Diameter MM 3.6 cm LA Ao Ratio MM 1.2 AV Cusp Separation MM 1.3 cm DOPPLER AV Peak Velocity 432.7 cm/s AV Peak Gradient 74.9 mmHg AV Mean Gradient 49.0 mmHg AV Velocity Time Integral 94.4 cm LVOT Peak Velocity 68.4 cm/s LVOT Peak Gradient 1.9 mmHg LVOT Velocity Time Integral 13.3 cm AV Area Cont Eq vti 0.8 cm AV Area Cont Eq pk 0.9 cm Mitral E Point Velocity 63.2 cm/s Mitral A Point Velocity 73.5 cm/s Mitral E to A Ratio 0.9 LV E' Lateral Velocity 12.1 cm/s Mitral E to LV E' Lateral Ratio 5.2 LV E' Septal Velocity 6.7 cm/s Mitral E to LV E' Septal Ratio 9.4 FINDINGS LEFT VENTRICLE Normal left ventricular size. The left ventricular systolic function is low normal with an estimated ejection fraction in the rang e of 50- 55%. RIGHT VENTRICLE Normal right ventricular size and systolic function. LEFT ATRIUM The left atrial size is normal. RIGHT ATRIUM The right atrial size is normal. ATRIAL SEPTUM Normal atrial septal thickness without atrial level shunting by limited color doppler interrogation. AORTA The aortic root and proximal ascending aorta are normal in size on limited imaging. MITRAL VALVE Structurally normal mitral valve. Mild mitral valve regurgitation. AORTIC VALVE Moderate to severe aortic valve stenosis. Aortic valve area is 0.81 cm. Aortic valve mean gradient is 49 mmHg. Vmax 433 TRICUSPID VALVE Structurally normal tricuspid valve. There is mild tricuspid valve regurgitation. PULMONARY VALVE The pulmonary valve is not well visualized. VESSELS The inferior vena cava is normal in size. PERICARDIUM No pericardial effusion. Lo Leung MD (Electronically Signed) Final Date:03 October 2017 10:39
[2017-10-03] MEDS: VANCOMYCIN 1 GM/200 ML PREMIX IV SCH (14:05)
[2017-10-03] MEDS ORDERED: PHARMACY ORDERED LAB ONE (14:45)
[2017-10-03] MEDS: LORazepam 1 MG TAB PO PRN ×2 (15:25→20:44)
[2017-10-04] VITALS (22 sets, daily range): BP systolic 85–102; BP diastolic 52–72; PULSE 70–93; RESP 16–20; TEMP 98.2–98.7; O2SAT 96–98
[2017-10-04] MEDS: CEFEPIME INJ 2,000 MG in SODIUM CHLORIDE 0.9% INJ 100 ML IV SCH ×2 (03:21→16:51)
[2017-10-04] MEDS: ACETAMINOPHEN 325 MG TAB PO PRN (03:29)
[2017-10-04] MEDS: MUPIROCIN 2% OINT 22 GM TUBE TOPICAL SCH ×3 (05:49→20:58)
[2017-10-04] MEDS: metroNIDAZOLE 500 MG TAB PO SCH ×2 (05:53→14:43)
[2017-10-04] MEDS: PANTOPRAZOLE SOD 40 MG DELAYED RELEASE TAB PO SCH ×2 (08:22→20:57)
[2017-10-04] MEDS: FLUCONAZOLE 100 MG TAB PO SCH (08:29)
[2017-10-04] MEDS: SODIUM CHLORIDE 0.9% FLUSH 10 ML FLUSH IV FLUSH SCH ×2 (08:31→20:57)
--- NOTE | 2017-10-04 08:42 | PD.CARD.PN ---
Subjective Subjective Remarks Started having some shortness of breath last Wednesday, still present but overall improved. He denies any chest pain, lightheadedness, dizziness, palpitations, lower extremity swelling. Patient and at bedside had noticed some dyspnea on exertion as of late. (Ish Chun) Objective Medications Current Medications Medications (Trade) Dose Ordered Sig/Davie Route Start Time Stop Time Status Last Admin Pharmacy Profile Note 0 ml @ 0 mls/hr UNSCH OTHER 10/01/17 15:30 (Tylenol) 650 mg Q4H PRN PO 10/01/17 15:30 10/04/17 03:29 (Zofran Inj) 4 mg Q6H PRN IV 10/01/17 15:30 ([place] 5-325 Mg) 1 tab Q4H PRN PO 10/01/17 15:30 (NS Flush) 2 ml UNSCH PRN IV FLUSH 10/01/17 15:30 (NS Flush) 2 ml BID IV FLUSH 10/01/17 21:00 10/04/17 08:31 (Romazicon Inj) 0.2 mg Q1M PRN IV PUSH 10/01/17 15:30 (Ativan) 1 mg Q4H PRN PO 10/01/17 15:30 10/03/17 20:44 (Ativan Inj) 1 mg Q4H PRN IV PUSH 10/01/17 15:30 (Ativan) 2 mg Q2H PRN PO 10/01/17 15:30 (Ativan Inj) 2 mg Q2H PRN IV PUSH 10/01/17 15:30 (Ativan Inj) 2 mg Q1H PRN IV PUSH 10/01/17 15:30 (Ativan Inj) 2 mg Q15M PRN IV PUSH 10/01/17 15:30 Vancomycin/Sodium Chloride 200 ml @ 200 mls/hr Q24H IV 10/02/17 15:00 10/03/17 14:05 (Tums Chew) 1,000 mg Q4H PRN CHEW 10/01/17 21:15 10/01/17 21:32 (Bactroban 2% Oint) 1 applic Q8HR TOPICAL 10/02/17 08:30 10/04/17 05:49 (Protonix) 40 mg Q12HR PO 10/02/17 09:00 10/04/17 08:22 (Mag-Al Plus Susp Liq) 30 ml Q6H PRN PO 10/02/17 08:30 Cefepime HCl 2000 mg/Sodium Chloride 100 ml @ 200 mls/hr Q12H IV 10/02/17 16:00 10/04/17 03:21 (Flagyl) 500 mg Q8HR PO 10/02/17 14:00 10/04/17 05:53 (Diflucan) 100 mg DAILY PO 10/02/17 13:30 10/04/17 08:29 (Benadryl Inj) 25 mg Q4H PRN IV PUSH 10/02/17 14:30 Miscellaneous Information SPECIFIC LAB TO BE DRAWN:VANCO TROUGH DATE TO BE DR... ONCE ONCE .XX 10/04/17 14:45 10/04/17 14:46 Vital Signs / I&O Vital Signs Date Time Temp Pulse Resp B/P (MAP) Pulse Ox O2 Delivery O2 Flow Rate FiO2 10/04/17 06:00 93 10/04/17 05:00 75 10/04/17 04:00 79 10/04/17 03:20 98.2 76 16 102/64 (77) 97 10/04/17 03:00 72 10/04/17 02:00 75 10/04/17 01:00 82 10/04/17 00:00 75 10/03/17 23:00 84 10/03/17 23:00 98.3 75 18 93/50 (64) 98 10/03/17 22:00 80 10/03/17 21:00 86 10/03/17 20:30 99.1 92 18 94/53 (67) 95 10/03/17 20:00 100 10/03/17 19:00 95 10/03/17 18:00 85 10/03/17 17:00 86 10/03/17 16:00 90 10/03/17 15:38 99.9 96 18 96/50 (65) 96 10/03/17 15:00 92 10/03/17 14:00 90 10/03/17 13:00 88 10/03/17 12:00 86 10/03/17 11:45 100.2 97 16 93/50 (64) 97 10/03/17 11:00 88 10/03/17 10:00 86 10/03/17 09:00 78 I/O 10/03/17 10/03/17 10/03/17 10/04/17 10/04/17 10/04/17 07:00 15:00 23:00 07:00 15:00 23:00 Intake Total 580 ml 1050 ml 580 ml Output Total 800 ml 625 ml Balance 580 ml 250 ml -45 ml Intake Oral 480 ml 700 ml 480 ml IV Total 100 ml 350 ml 100 ml Output Urine Total 800 ml 625 ml # Voids 1 # Bowel Movements 3 1 0 Physical Exam GENERAL: Well-developed well-nourished. In no acute distress. Right radial site clean. NECK: No carotid bruits. No JVD. CARDIOVASCULAR: Regular rate and rhythm. 08/28 systolic murmur appreciated. RESPIRATORY: No accessory muscle use. Clear to auscultation. Breath sounds equal bilaterally. MUSCULOSKELETAL: No clubbing or cyanosis. No edema. NEUROLOGICAL: Awake and alert. Normal speech. Imaging Last Impressions Soft Tissue Ultrasound 10/01/17 0000 Signed Impressions: Service Date/Time: Sunday, October 01, 2017 18:31 - CONCLUSION: Slight increase in the vascularity of the superficial subcutaneous soft tissues of the left buttocks. Otherwise no focal fluid collection or soft tissue mass Ronal Peoples MD Chest X-Ray 10/01/17 0000 Signed Impressions: Service Date/Time: Sunday, October 01, 2017 13:37 - CONCLUSION: No acute disease. Mynor Dyer MD FACR (Ish Chun) Assessment and Plan Assessment and Plan 67-year-old male who presented for buttocks infection, complained of chest pain and shortness of breath in the ED and found to have ST depressions on EKG. Emergent cardiac catheterization performed 10/01 which showed clean coronary arteries. Moderate to severe aortic stenosis: Seen on echocardiogram. Complaints of SOB/ BECK. Would need clearing of infection prior to consideration for valve replacement. Buttocks infection: Management per ID and primary team. (Ish Chun) Assessment and Plan cellulitis mod-severe mild-mod nonobstructive CAD Ok for DC from cardio standpoint Med therapy for now after infection completely resolves, we will discuss possible AVR if symptomatic. no candidate for TAVR. low risk surgical candidate. (Sundeep Carvajal MD) Ish Chun Oct 04, 2017 08:42 Sundeep Carvajal MD Oct 04, 2017 10:48
--- NOTE | 2017-10-04 10:37 | MB ---
cc: VALERIE STARKS DATE OF CONSULTATION 10/01/[address]-elevation [place]. HISTORY OF PRESENT ILLNESS This 67-year-old gentleman with a history of diabetes, ulcerative colitis, alcohol and tobacco abuse presented to the emergency department with progressive shortness of breath, chest pain and spider bite and cellulitis on his buttocks. He had noticed some drainage for the wound about 2 days ago, came into the emergency department and had an electrocardiogram which showed EKG changes. A STEMI Alert was initiated. He was transferred from [place] [facility] emergently for ST-elevation [place]. PAST MEDICAL HISTORY 1. Diabetes. 2. Ulcerative colitis. 3. Abdominal aortic aneurysm. 4. Bo's esophagus. 5. Alcohol abuse. 6. Tobacco abuse. 7. Hyperlipidemia. 8. Memory deficits. ALLERGIES 1. PENICILLIN. 2. STATINS. SOCIAL HISTORY Smokes a half pack a day for 30 years. Alcohol 2-3 mixed drinks every evening. He is . REVIEW OF SYSTEMS A 12-point review of systems was performed and negative unless otherwise noted in the history of present illness. VITAL SIGNS: Pulse 84, blood pressure 121/63 mmHg. GENERAL: Alert and oriented x3, in no acute distress. HEENT: Pupils are reactive to light and accommodation. Extraocular movements are intact. NECK: No jugular venous distention. No thyromegaly. No lymphadenopathy. No carotid bruits. LUNGS: Clear to auscultation bilaterally. CARDIOVASCULAR: Regular rate and rhythm without murmurs, rubs, gallops. ABDOMEN: Nontender, nondistended. Good bowel sounds. No hepatosplenomegaly. EXTREMITIES: No clubbing, cyanosis or edema. Good peripheral pulses. NEUROLOGIC: Cranial nerves intact. Motor and sensory grossly intact. LABORATORY Hemoglobin 17.3. Sodium 136, potassium 6.0, BUN 15, creatinine 1.2. ASSESSMENT 1. Chest pain/ST-elevation myocardial infarction. 2. Cellulitis. PLAN The patient is going to be transferred for emergent cardiac catheterization due to electrocardiographic changes. The risks, benefits and alternatives were discussed with the patient. The patient understood and consented to the procedure. MD AUSTIN Foreman/MELBA /10:06 AM /10:19 AM
[2017-10-04] MEDS: LORazepam 1 MG TAB PO PRN (11:36)
--- NOTE | 2017-10-04 12:37 | MA ---
cc: VALERIE STARKS DATE 10/01/[address]-elevation OK. PROCEDURE PERFORMED 1. Fluoroscopy with interpretation. 2. Coronary angiography. 3. Left heart catheterization. METHOD The risks, benefits and alternatives were discussed with the patient. The patient understood and consented to the procedure. The patient was brought into the catheterization lab and placed on the catheterization table. The right wrist was prepped and draped in sterile fashion. The right wrist was anesthetized with 2% lidocaine. The right radial artery was cannulated and a 6 Martiniquais, 7 cm sheath was placed without difficulty. LEFT HEART CATHETERIZATION Intraventricular hemodynamics measured 165/10 mmHg. There was a 40-45 mmHg transaortic valve gradient on pullback from [id number]. CORONARY ANGIOGRAPHY 1. The left main coronary has mild luminal irregularities. 2. The left anterior descending coronary artery is quite tortuous, has 30% stenosis in the midsegment, small diagonal branches with mild to moderate disease. There is one large first diagonal branch which has a 30% proximal stenosis. 3. The ramus intermedius branch is small to moderate caliber size, has a 50% stenosis proximally. 4. The left circumflex gives rise to an obtuse marginal branch, also has a 50% stenosis through the proximal segment and somewhat angulated. CONCLUSIONS 1. Mild to moderate nonobstructive coronary artery disease. 2. Moderate to possibly severe aortic valve stenosis by transvalvular gradient. PLAN There is no obvious culprit for chest pain symptoms as the stenoses are not obstructive. We can medically manage the circumflex and right coronary arteries. He does describe a history of a murmur in addition to shortness of breath. We note a significant transaortic valvular gradient suggestive of at least moderate stenosis. Will confirm with echocardiogram. Remainder of management per the hospital service. MD AUSTIN Foreman/MELBA /10:09 AM /12:33 PM
[2017-10-04] MEDS ORDERED: PHARMACY ORDERED LAB ONE (14:45)
[2017-10-04] MEDS: VANCOMYCIN 1 GM/200 ML PREMIX IV SCH (14:56)
--- NOTE | 2017-10-04 15:07 | PD.CAR.PN ---
CVT Progress Note Subjective/Hospital Course: Cath and ECHO results noted. Will need eventual AVR following resolution of current wound issues. Full consult to follow. Thank you for allowing me to participate in his care. Objective: Vital Signs Date Time Temp Pulse Resp B/P (MAP) Pulse Ox O2 Delivery O2 Flow Rate FiO2 10/04/17 14:00 84 10/04/17 13:00 88 10/04/17 12:00 88 10/04/17 11:34 98.6 89 19 99/69 (79) 98 10/04/17 11:00 79 10/04/17 10:00 74 10/04/17 09:00 70 10/04/17 08:00 76 10/04/17 07:45 98.5 79 19 102/62 (75) 98 10/04/17 07:00 74 10/04/17 06:00 93 10/04/17 05:00 75 10/04/17 04:00 79 10/04/17 03:20 98.2 76 16 102/64 (77) 97 10/04/17 03:00 72 10/04/17 02:00 75 10/04/17 01:00 82 10/04/17 00:00 75 10/03/17 23:00 84 10/03/17 23:00 98.3 75 18 93/50 (64) 98 10/03/17 22:00 80 10/03/17 21:00 86 10/03/17 20:30 99.1 92 18 94/53 (67) 95 10/03/17 20:00 100 10/03/17 19:00 95 10/03/17 18:00 85 10/03/17 17:00 86 10/03/17 16:00 90 10/03/17 15:38 99.9 96 18 96/50 (65) 96 Labs: Laboratory Tests Test 10/04/17 14:45 Result Diagram: 10/03/17 0338 10/02/17 0323 Macrina George MD Oct 04, 2017 15:07
--- NOTE | 2017-10-04 18:18 | HHI.PR ---
Subjective Remarks Pt denied chest pain or SOB. No drainage from buttocks inflammation. Objective Vitals Vital Signs Date Time Temp Pulse Resp B/P (MAP) Pulse Ox O2 Delivery O2 Flow Rate FiO2 10/04/17 16:19 98.7 82 20 99/72 (81) 96 10/04/17 15:24 96/52 (67) 10/04/17 15:05 98.5 81 19 85/53 (64) 97 10/04/17 14:00 84 10/04/17 13:00 88 10/04/17 12:00 88 10/04/17 11:34 98.6 89 19 99/69 (79) 98 10/04/17 11:00 79 10/04/17 10:00 74 10/04/17 09:00 70 10/04/17 08:00 76 10/04/17 07:45 98.5 79 19 102/62 (75) 98 10/04/17 07:00 74 10/04/17 06:00 93 10/04/17 05:00 75 10/04/17 04:00 79 10/04/17 03:20 98.2 76 16 102/64 (77) 97 10/04/17 03:00 72 10/04/17 02:00 75 10/04/17 01:00 82 10/04/17 00:00 75 10/03/17 23:00 84 10/03/17 23:00 98.3 75 18 93/50 (64) 98 10/03/17 22:00 80 10/03/17 21:00 86 10/03/17 20:30 99.1 92 18 94/53 (67) 95 10/03/17 20:00 100 10/03/17 19:00 95 Result Diagram: 10/03/17 0338 10/02/17 0323 Imaging Last Impressions Soft Tissue Ultrasound 10/01/17 0000 Signed Impressions: Service Date/Time: Sunday, October 01, 2017 18:31 - CONCLUSION: Slight increase in the vascularity of the superficial subcutaneous soft tissues of the left buttocks. Otherwise no focal fluid collection or soft tissue mass Ronal Peoples MD Chest X-Ray 10/01/17 0000 Signed Impressions: Service Date/Time: Sunday, October 01, 2017 13:37 - CONCLUSION: No acute disease. Mynor Dyer MD FACR Objective Remarks GENERAL: This is a well-nourished, well-developed patient, in no apparent distress. CARDIOVASCULAR: Regular rate and rhythm without murmurs, gallops, or rubs. RESPIRATORY: Clear to auscultation. Breath sounds equal bilaterally. No wheezes , rales, or rhonchi. GASTROINTESTINAL: Abdomen soft, non-tender, nondistended. Normal active bowel sounds MUSCULOSKELETAL: Extremities without clubbing, cyanosis, or edema. NEURO: Alert & Oriented x4 to person, place, time, situation. Moves all ext x4 skin: erythema noted at left and right buttock. examined with ID. A/P Problem List: (1) Chest pain ICD Codes: R07.9 - Chest pain, unspecified Status: Acute Plan: - comgmt with Cardiology - Pt is a 67 y/o WM with diet controlled diabetes mellitus, ulcerative colitis, Bo's esophagus, alcohol and tobacco use and AAA. - Pt reported to the ED at [facility] with complaints of SOB and chest pain that began this morning. He reports that the pain began around 5AM, described as intermittent chest tightness which became more consistent and persistent about 2 hours prior to evaluation in the ED. He had some associated shortness of breath. - In the ED the pt had EKG changes with ST depression in the V1/V2 leads. STEMI alert was called and the pt was taken to the blood and plasma laboratory assistant for LHC. - LHC (10/01) --> no acute obstructive coronary disease - Echoc (10/02) --> mod/severe - Pt seen by CTS Dr. George (10/04) --> pt should be considered for AVR when more stable and buttock infection has resolved - anticipate d/c to home in next 1-2 days. (2) Cellulitis, gluteal ICD Codes: L03.317 - Cellulitis of buttock Status: Acute Plan: - Pt reported that he woke up 5 days ago with what he presumed was a spider bite on his left buttock...but not confirmed - The skin around the spider bite became increasingly read and started spreading. He did have some noted drainage from the wound 2 days ago. - He was seen by his PCP, Dr. Fan on 09/30 for the buttock cellulitis and was started on Doxy BID which he had taken three doses prior to admission to the hospital. - Started Vancomycin IV on 10/01....cefepime/flagyl/diflucan added on 10/02 - xarljanz on hold - Pt examined together with ID, Dr. Bacon, who had previously seen areas of inflammation - inflammation felt to be less severe, less red - vancomycin, cefepime, and flagyl stopped (10/04) - Pt started on PO doxycycline, levaquin, and diflucan x 10d - if pt remains stable including areas of inflammation on buttocks, then will likely d/c to home 10/05 (3) Aortic valve stenosis ICD Codes: I35.0 - Nonrheumatic aortic (valve) stenosis Status: Chronic Plan: - See above (4) Ulcerative colitis ICD Codes: K51.90 - Ulcerative colitis, unspecified, without complications Status: Chronic Plan: - Pt takes Xeljanz 10mg po BID at home, hold (5) Alcohol use ICD Codes: Z78.9 - Other specified health status Status: Chronic Plan: - He is a daily alcohol user - CIWA protocol ordered - EtOH withdrawal precautions (6) Tobacco use ICD Codes: Z72.0 - Tobacco use Status: Chronic Plan: - recommended cessation Kashif Parson DO Oct 04, 2017 18:17
--- NOTE | 2017-10-04 19:28 | HHI.IDPN ---
Subjective Subjective Remarks Mr. Golden is a pleasant 67 y/o WM with diet controlled diabetes mellitus, ulcerative colitis, Bo's esophagus, alcohol and tobacco use and AAA. Pt reported to the ED at [facility] [place] with complaints of SOB and chest pain that began on morning of admission. STEMI alert was called and patient was s/b and underwent Cardiac cath [facility] and reportedly his coronary arteries are clear. Pt was also noted to have some cellulitis on his left buttock. He reports that he woke up 5 days ago with what he presumed was a spider bite on his left buttock. The skin around the spider bite became increasingly read and started spreading. He did have some noted drainage from the wound 2 days ago. He was seen by his PCP, Dr. Rosario, yesterday for the buttock cellulitis and was started on Doxy which he had taken three doses prior to admission to the hospital today. Pt had not noticed much improvement in the cellulitis prior to admission. He denies any fevers or chills. Denies any nausea/vomiting, diarrhea , reflux, dysphagia, or abdominal pain. He denies any further chest pain or SOB currently. Infectious Disease consulted for evaluation and Mment of Buttock sacral cellulitis increasing in size in an Immune compromised patient. Pertinent positives and negatives: denies any change in B/B Denies any perirectal pain or swelling. Denies any boils in the perineal or buttock region but he has significant amount of hair in the region. Overnight events reviewed. No fever Pain and discomfort in the sacral and buttock region reduced significantly. Reports one new lesion on the leg was started to his back since then. Antibiotics Cefepime IV Vancomycin IV Flagyl oral Diflucan oral Lines Line sites with no evidence of infection. Past Medical History Diet controlled diabetes mellitus, felt to be related to steroid use Ulcerative colitis AAA Bo's esophagus Alcohol use Tobacco use Memory deficits, short term Hyperlipidemia Past Surgical History ACL transplant, right knee Bilateral carpal tunnel release Vasectomy Allergies: Coded Allergies: penicillin G (Unverified Allergy, Severe, Hives, 10/02/17) Patient reports to me he has tolerated Keflex in past with no side effects. Uncoded Allergies: STATINS (Adverse Reaction, Intermediate, CRAMPS IN LEGS AND BACK, 01/24/13) Objective . Vital Signs Date Time Temp Pulse Resp B/P (MAP) Pulse Ox O2 Delivery O2 Flow Rate FiO2 2/12/18 16:19 98.7 82 20 99/72 (81) 96 10/04/17 15:24 96/52 (67) 10/04/17 15:05 98.5 81 19 85/53 (64) 97 10/04/17 14:00 84 10/04/17 13:00 88 10/04/17 12:00 88 10/04/17 11:34 98.6 89 19 99/69 (79) 98 10/04/17 11:00 79 10/04/17 10:00 74 10/04/17 09:00 70 10/04/17 08:00 76 10/04/17 07:45 98.5 79 19 102/62 (75) 98 10/04/17 07:00 74 10/04/17 06:00 93 10/04/17 05:00 75 10/04/17 04:00 79 10/04/17 03:20 98.2 76 16 102/64 (77) 97 10/04/17 03:00 72 10/04/17 02:00 75 10/04/17 01:00 82 10/04/17 00:00 75 10/03/17 23:00 84 10/03/17 23:00 98.3 75 18 93/50 (64) 98 10/03/17 22:00 80 10/03/17 21:00 86 10/03/17 20:30 99.1 92 18 94/53 (67) 95 10/03/17 20:00 100 . Laboratory Tests Test 10/03/17 03:38 White Blood Count 8.7 TH/MM3 Red Blood Count 4.88 MIL/MM3 Hemoglobin 15.8 GM/DL Hematocrit 45.7 % Mean Corpuscular Volume 93.8 FL Mean Corpuscular Hemoglobin 32.4 PG Mean Corpuscular Hemoglobin Concent 34.6 % Red Cell Distribution Width 13.8 % Platelet Count 130 TH/MM3 Mean Platelet Volume 9.3 FL Neutrophils (%) (Auto) 86.4 % Lymphocytes (%) (Auto) 2.6 % Monocytes (%) (Auto) 9.8 % Eosinophils (%) (Auto) 0.9 % Basophils (%) (Auto) 0.3 % Neutrophils # (Auto) 7.5 TH/MM3 Lymphocytes # (Auto) 0.2 TH/MM3 Monocytes # (Auto) 0.9 TH/MM3 Eosinophils # (Auto) 0.1 TH/MM3 Basophils # (Auto) 0.0 TH/MM3 CBC Comment DIFF FINAL Differential Comment Microbiology Date/Time Source Procedure Growth Status 10/02/17 17:30 Blood Peripheral Aerobic Blood Culture - Preliminary NO GROWTH IN 2 DAYS Resulted 10/02/17 17:30 Blood Peripheral Anaerobic Blood Culture - Preliminary NO GROWTH IN 2 DAYS Resulted 10/02/17 17:25 Blood Peripheral Aerobic Blood Culture - Preliminary NO GROWTH IN 2 DAYS Resulted 10/02/17 17:25 Blood Peripheral Anaerobic Blood Culture - Preliminary NO GROWTH IN 2 DAYS Resulted 10/02/17 23:45 Nasal Aspirate Influenza Types A,B Antigen (INDU) - Final NEGATIVE FOR FLU A AND B ANTIGEN.... Complete Imaging Last Impressions Soft Tissue Ultrasound 10/01/17 0000 Signed Impressions: Service Date/Time: Sunday, October 01, 2017 18:31 - CONCLUSION: Slight increase in the vascularity of the superficial subcutaneous soft tissues of the left buttocks. Otherwise no focal fluid collection or soft tissue mass Ronal Peoples MD Chest X-Ray 10/01/17 0000 Signed Impressions: Service Date/Time: Sunday, October 01, 2017 13:37 - CONCLUSION: No acute disease. Mynor Dyer MD FACR Physical Exam GENERAL: This is a well-nourished, well-developed patient, in no apparent distress. SKIN: No rashes, ecchymoses or lesions. Cool and dry. HEAD: Atraumatic. Normocephalic. No temporal or scalp tenderness. EYES: Pupils equal round and reactive. Extraocular motions intact. No scleral icterus. No injection or drainage. ENT: Nose without bleeding, purulent drainage or septal hematoma. Throat without erythema, tonsillar hypertrophy or exudate. Uvula midline. Airway patent. NECK: Trachea midline. Supple, nontender, no meningeal signs. CARDIOVASCULAR: Regular rate and rhythm without murmurs, gallops, or rubs. RESPIRATORY: Clear to auscultation. Breath sounds equal bilaterally. No wheezes , rales, or rhonchi. GASTROINTESTINAL: Abdomen soft, non-tender, nondistended. MUSCULOSKELETAL: Extremities without clubbing, cyanosis, or edema. No joint tenderness, effusion, or edema noted. No calf tenderness. Negative Homans sign bilaterally. Left buttock cheek and sacral area with erythema and induration noted. Patient had several other satellite erythematous lesions on the back. Overall significantly improved since last seen. NEUROLOGICAL: Awake and alert. Grossly non focal Psych cooperative IV line sites with no e.o infection. Assessment & Plan Remarks Left buttock and sacra cellulitis. Immune compromised host. Persistent fevers Alcoholism Chronic smoker. Ulcerative colitis on Immune suppressants. Penicillin allergy: reports hives but no respiratory symptoms. Recs: DC Vanco IV (target trough 15-20) Discontinue cefepime IV Continue Flagyl(patient would like to avoid clindamycin due to C. difficile but at the same time his and patient both say that he will likely resume to alcoholism. Due to concern for disulfiram reaction I will avoid Flagyl at the current time) Start doxycycline oral Start Levaquin oral Start Diflucan oral. Follow cultures Follow clinically. Overnight on this new regimen if he continues to do well patient may be discharged on a 10 day course of about regimen. Patient to follow-up with his primary care if lesions do not improve evaluation was needed a rheumatology biopsy to rule out ulcerative colitis related skin changes such as pyoderma gangrenosum. Discussed with Dr. Parson in the room with patient and his . Will sign off please call back if any change in clinical condition or questions. Rayna Bacon MD Oct 04, 2017 19:28
[2017-10-04] MEDS: LEVOFLOXACIN 500 MG TAB PO SCH (20:57)
[2017-10-04] MEDS: DOXYCYCLINE HYCLATE 100 MG CAP PO SCH (20:57)
[2017-10-05] VITALS (7 sets, daily range): BP systolic 90–125; BP diastolic 55–69; PULSE 70–87; RESP 18–20; TEMP 98.4–99; O2SAT 95–97
[2017-10-05] MEDS: MUPIROCIN 2% OINT 22 GM TUBE TOPICAL SCH ×2 (04:54→15:21)
[2017-10-05 06:13] LABS: CREATININE 1.14 MG/DL (0.60-1.30)
--- NOTE | 2017-10-05 07:35 | PD.CARD.PN ---
Subjective Subjective Remarks Today the patient denies any chest pain, shortness breath, or palpitations. The patient is anxious to be discharged soon. Objective Medications Current Medications Medications (Trade) Dose Ordered Sig/Davie Route Start Time Stop Time Status Last Admin (Tylenol) 650 mg Q4H PRN PO 10/01/17 15:30 10/04/17 03:29 (Zofran Inj) 4 mg Q6H PRN IV 10/01/17 15:30 (Royal 5-325 Mg) 1 tab Q4H PRN PO 10/01/17 15:30 10/04/17 14:43 (NS Flush) 2 ml UNSCH PRN IV FLUSH 10/01/17 15:30 (NS Flush) 2 ml BID IV FLUSH 10/01/17 21:00 10/04/17 20:57 (Romazicon Inj) 0.2 mg Q1M PRN IV PUSH 10/01/17 15:30 (Ativan) 1 mg Q4H PRN PO 10/01/17 15:30 10/04/17 11:36 (Ativan Inj) 1 mg Q4H PRN IV PUSH 10/01/17 15:30 (Ativan) 2 mg Q2H PRN PO 10/01/17 15:30 (Ativan Inj) 2 mg Q2H PRN IV PUSH 10/01/17 15:30 (Ativan Inj) 2 mg Q1H PRN IV PUSH 10/01/17 15:30 (Ativan Inj) 2 mg Q15M PRN IV PUSH 10/01/17 15:30 (Tums Chew) 1,000 mg Q4H PRN CHEW 10/01/17 21:15 10/01/17 21:32 (Bactroban 2% Oint) 1 applic Q8HR TOPICAL 10/02/17 08:30 10/05/17 04:54 (Protonix) 40 mg Q12HR PO 10/02/17 09:00 10/04/17 20:57 (Mag-Al Plus Susp Liq) 30 ml Q6H PRN PO 10/02/17 08:30 10/05/17 00:26 (Diflucan) 100 mg DAILY PO 10/02/17 13:30 10/04/17 08:29 (Benadryl Inj) 25 mg Q4H PRN IV PUSH 10/02/17 14:30 (Vibramycin) 100 mg BID PO 10/04/17 21:00 10/04/17 20:57 (Levaquin) 500 mg DAILY PO 10/04/17 19:30 10/04/17 20:57 Vital Signs / I&O Vital Signs Date Time Temp Pulse Resp B/P (MAP) Pulse Ox O2 Delivery O2 Flow Rate FiO2 10/05/17 05:50 99.0 87 18 107/67 (80) 97 10/05/17 04:28 74 10/05/17 00:14 99.0 81 18 125/67 (86) 97 10/05/17 00:00 79 10/04/17 20:00 79 10/04/17 20:00 98.5 84 18 100/56 (71) 96 10/04/17 16:19 98.7 82 20 99/72 (81) 96 10/04/17 15:24 96/52 (67) 10/04/17 15:05 98.5 81 19 85/53 (64) 97 10/04/17 14:00 84 10/04/17 13:00 88 10/04/17 12:00 88 10/04/17 11:34 98.6 89 19 99/69 (79) 98 10/04/17 11:00 79 10/04/17 10:00 74 10/04/17 09:00 70 10/04/17 08:00 76 10/04/17 07:45 98.5 79 19 102/62 (75) 98 I/O 10/04/17 10/04/17 10/04/17 10/05/17 10/05/17 10/05/17 07:00 15:00 23:00 07:00 15:00 23:00 Intake Total 580 ml 240 ml Output Total 625 ml Balance -45 ml 240 ml Intake Oral 480 ml 240 ml IV Total 100 ml Output Urine Total 625 ml # Voids 4 # Bowel Movements 0 4 Physical Exam GENERAL: Well-developed well-nourished. In no acute distress. Right radial site clean. NECK: No carotid bruits. No JVD. CARDIOVASCULAR: Regular rate and rhythm. 1/6 systolic murmur appreciated. RESPIRATORY: No accessory muscle use. Clear to auscultation. Breath sounds equal bilaterally. MUSCULOSKELETAL: No clubbing or cyanosis. No edema. NEUROLOGICAL: Awake and alert. Normal speech. Laboratory Laboratory Tests Test 10/04/17 14:45 10/05/17 05:05 Vancomycin Level Trough 5.3 MCG/ML Creatinine 1.14 MG/DL Estimat Glomerular Filtration Rate 64 ML/MIN Imaging Last Impressions Soft Tissue Ultrasound 10/01/17 0000 Signed Impressions: Service Date/Time: Sunday, October 01, 2017 18:31 - CONCLUSION: Slight increase in the vascularity of the superficial subcutaneous soft tissues of the left buttocks. Otherwise no focal fluid collection or soft tissue mass Ronal Peoples MD Chest X-Ray 10/01/17 0000 Signed Impressions: Service Date/Time: Sunday, October 01, 2017 13:37 - CONCLUSION: No acute disease. Mynor Dyer MD FACR Assessment and Plan Assessment and Plan 67-year-old male who presented for buttocks infection, complained of chest pain and shortness of breath in the ED and found to have ST depressions on EKG. Emergent cardiac catheterization performed 10/01 which showed clean coronary arteries. Moderate to severe aortic stenosis: CT surgery consulted, agreed with the plan for clearing of infection prior to consideration of valve replacement in the future. Nonobstructive CAD: Mild to moderate on cath 10/01. Cellulitis: Management per ID and primary team, to be transitioned to oral antibiotics today. Ok for DC from cardio standpoint Med therapy for now Adiel,Ish MARTINEZ Oct 05, 2017 07:34
[2017-10-05] MEDS: DOXYCYCLINE HYCLATE 100 MG CAP PO SCH (08:30)
[2017-10-05] MEDS: LEVOFLOXACIN 500 MG TAB PO SCH (08:30)
[2017-10-05] MEDS: FLUCONAZOLE 100 MG TAB PO SCH (08:31)
[2017-10-05] MEDS: SODIUM CHLORIDE 0.9% FLUSH 10 ML FLUSH IV FLUSH SCH (08:31)
[2017-10-05] MEDS: PANTOPRAZOLE SOD 40 MG DELAYED RELEASE TAB PO SCH (08:31)
[2017-10-05] MEDS ORDERED: LEVA500T33 PO ×2 (11:57→14:55)
[2017-10-05] MEDS ORDERED: DIFL100T PO (11:57)
[2017-10-05] MEDS ORDERED: PANT40TA3 PO (11:57)
[2017-10-05] MEDS ORDERED: DOXY100C PO (11:57)
[2017-10-05] MEDS ORDERED: Mupirocin 2% Oint TOPICAL (11:57)
[2017-10-05] MEDS ORDERED: MUPI2%T TOPICAL (14:55)
[2017-10-05] MEDS ORDERED: VANCOMYCIN 1,500 MG/NS 500 ML IV SCH ×2 (15:00)
--- NOTE | 2017-10-05 15:03 | HHI.DS ---
Discharge Summary Admission Date Oct 01, 2017 at 15:40 Discharge Date: Oct 05, 2017 Admitting Diagnosis Chest pain, cellulitis (1) Chest pain Diagnosis: Principal ICD Codes: R07.9 - Chest pain, unspecified Status: Acute (2) Cellulitis, gluteal Diagnosis: Principal ICD Codes: L03.317 - Cellulitis of buttock Status: Acute (3) Aortic valve stenosis Diagnosis: Secondary ICD Codes: I35.0 - Nonrheumatic aortic (valve) stenosis Status: Chronic (4) Ulcerative colitis Diagnosis: Secondary ICD Codes: K51.90 - Ulcerative colitis, unspecified, without complications Status: Chronic (5) Alcohol use Diagnosis: Secondary ICD Codes: Z78.9 - Other specified health status Status: Chronic (6) Tobacco use Diagnosis: Secondary ICD Codes: Z72.0 - Tobacco use Status: Chronic Consultants Dr. Bacon, ID Dr. George, Cardiovascular surgery Dr. Carvajal, Cardiology Procedures cardiac catheterization 10/01/17 Brief History Mr. Golden is a pleasant 67 y/o WM with diet controlled diabetes mellitus, ulcerative colitis, Bo's esophagus, alcohol and tobacco use and AAA. Pt reported to the ED at [facility] [place] [place] with complaints of SOB and chest pain that began this morning. He reports that the pain began around 5AM, described as intermittent chest tightness which became more consistent and persistent about 2 hours prior to evaluation in the ED. He had some associated shortness of breath. No reported palpitations, dizziness, weakness or diaphoresis. Pt had EKG changes in the ED consistent with ST depression in the V1/V2 leads. STEMI alert was called and the pt was taken to the supervisor cytogenetic laboratory for C. The case was discussed with Dr. Carvajal post-procedurally and it was reported that his coronary arteries were clear. Pt was also noted to have some cellulitis on his left buttock. He reports that he woke up 5 days ago with what he presumed was a spider bite on his left buttock. The skin around the spider bite became increasingly read and started spreading. He did have some noted drainage from the wound 2 days ago. He was seen by his PCP, Dr. Rosario, yesterday for the buttock cellulitis and was started on Doxy which he had taken three doses prior to admission to the hospital today. Pt had not noticed much improvement in the cellulitis prior to admission. He denies any fevers or chills. Denies any nausea/vomiting, diarrhea , reflux, dysphagia, or abdominal pain. He denies any further chest pain or SOB currently. CBC/BMP: 10/03/17 0338 10/05/17 0505 Significant Findings Laboratory Tests Test 10/03/17 03:38 10/04/17 14:45 10/05/17 05:05 Platelet Count 130 TH/MM3 (150-450) Neutrophils (%) (Auto) 86.4 % (16.0-70.0) Lymphocytes (%) (Auto) 2.6 % (9.0-44.0) Monocytes (%) (Auto) 9.8 % (0.0-8.0) Lymphocytes # (Auto) 0.2 TH/MM3 (1.0-4.8) Estimat Glomerular Filtration Rate 64 ML/MIN (>89) Imaging Last Impressions Soft Tissue Ultrasound 10/01/17 0000 Signed Impressions: Service Date/Time: Sunday, October 01, 2017 18:31 - CONCLUSION: Slight increase in the vascularity of the superficial subcutaneous soft tissues of the left buttocks. Otherwise no focal fluid collection or soft tissue mass Ronal Peoples MD Chest X-Ray 10/01/17 0000 Signed Impressions: Service Date/Time: Sunday, October 01, 2017 13:37 - CONCLUSION: No acute disease. Mynor Dyer MD FACR PE at Discharge GENERAL: This is a well-nourished, well-developed patient, in no apparent distress. SKIN: rash noted at left and right buttock. examined with Dr. Parson rash improving CARDIOVASCULAR: Regular rate and rhythm without murmurs, gallops, or rubs. RESPIRATORY: Clear to auscultation. Breath sounds equal bilaterally. No wheezes , rales, or rhonchi. GASTROINTESTINAL: Abdomen soft, non-tender, nondistended. Normal active bowel sounds MUSCULOSKELETAL: Extremities without clubbing, cyanosis, or edema. NEURO: Alert & Oriented x4 to person, place, time, situation. Moves all ext x4 Hospital Course Chest pain - comgmt with Cardiology - Pt is a 67 y/o WM with diet controlled diabetes mellitus, ulcerative colitis, Bo's esophagus, alcohol and tobacco use and AAA. - Pt reported to the ED at [facility] [place] [place] with complaints of SOB and chest pain that began this morning. He reports that the pain began around 5AM, described as intermittent chest tightness which became more consistent and persistent about 2 hours prior to evaluation in the ED. He had some associated shortness of breath. - In the ED the pt had EKG changes with ST depression in the V1/V2 leads. STEMI alert was called and the pt was taken to the supervisor cytogenetic laboratory for LHC. - LHC (10/01) --> no acute obstructive coronary disease - Echoc (10/02) --> mod/severe - Pt seen by CTS Dr. George (10/04) --> pt should be considered for AVR when more stable and buttock infection has resolved Cellulitis, gluteal - Pt reported that he woke up 5 days ago with what he presumed was a spider bite on his left buttock...but not confirmed - The skin around the spider bite became increasingly read and started spreading. He did have some noted drainage from the wound 2 days ago. - He was seen by his PCP, Dr. Fan on 09/30 for the buttock cellulitis and was started on Doxy BID which he had taken three doses prior to admission to the hospital. - Started Vancomycin IV on 10/01....cefepime/flagyl/diflucan added on 10/02 - xarljanz on hold - Pt examined together with ID, Dr. Bacon, who had previously seen areas of inflammation - inflammation felt to be less severe, less red - vancomycin, cefepime, and flagyl stopped (10/04) - Pt started on PO doxycycline, levaquin, and diflucan x 10d - Patient cleared for DC per ID Aortic valve stenosis - See above - Pt takes Xeljanz 10mg po BID at home, hold. Dr. Parson explained to patient that he may resume Wednesday Alcohol use - He is a daily alcohol user - CIWA protocol ordered - EtOH withdrawal precautions - Patient Counselled Tobacco use - recommended cessation Pt Condition on Discharge: Stable Discharge Disposition: Discharge Home Discharge Instructions DIET: Follow Instructions for: Heart Healthy Diet Activities you can perform: Regular-No Restrictions Follow up Referrals: PCP Follow-up - [address] Fan Vascular Surgery - [address] George New Medications: Mupirocin Topical (Bactroban Topical) 22 Gm Cream 1 APPLIC TOPICAL TID for Mgmt Bacterial Infection for 14 Days, #1 TUBE 0 Refills Doxycycline Hyclate (Doxycycline Hyclate) 100 Mg Cap 100 MG PO BID for antibiotic for 10 Days, #20 CAP 0 Refills Fluconazole (Diflucan) 100 Mg Tab 100 MG PO DAILY for antifungal for 10 Days, #10 TAB 0 Refills Levofloxacin (Levaquin) 500 Mg Tablet 500 MG PO DAILY for antibiotic for 10 Days, #10 EACH 0 Refills Pantoprazole (Pantoprazole) 40 Mg Tab 40 MG PO DAILY for stomach acid for 30 Days, #30 TAB 0 Refills Continued Medications: Tofacitinib (Xeljanz) 5 Mg Tab 10 MG PO BID for Arthritis, TAB 0 Refills Additional Information Patient examined. Assessment and plan formulated with Noy Perry PA-C. I agree with the above. Noy Perry Oct 05, 2017 15:03 Kashif Parson DO Oct 11, 2017 00:42
[2017-10-08] MEDS ORDERED: PHARMACY ORDERED LAB ONE (14:45)
== END 2017-10-05 16:30 | disposition home or self-care (01) | DRG 603 ==
LOC: NEPC 12:43 → NEDA 15:40 → HCPC 15:41 → N04A 10-04 16:00
PROVIDERS: ADMIT Internal Medicine Cardiovascular Disease; ATTEND Internal Medicine Cardiovascular Disease
PROC: 4A023N7 Measurement of Cardiac Sampling and Pressure, Left Heart, Percutaneous Approach (ICD-10-PCS; principal; 2017-10-01)
PROC: B2111ZZ Fluoroscopy of Multiple Coronary Arteries using Low Osmolar Contrast (ICD-10-PCS; 2017-10-01)
DX: L03.317 Cellulitis of buttock (principal); K51.90 Ulcerative colitis, unspecified, without complications; I10 Essential (primary) hypertension; R07.9 Chest pain, unspecified; I35.0 Nonrheumatic aortic (valve) stenosis; E11.9 Type 2 diabetes mellitus without complications; K22.70 Barrett's esophagus without dysplasia; I25.10 Atherosclerotic heart disease of native coronary artery without angina pectoris; Z87.442 Personal history of urinary calculi; E78.5 Hyperlipidemia, unspecified; Z88.0 Allergy status to penicillin; F17.210 Nicotine dependence, cigarettes, uncomplicated; I71.4 Abdominal aortic aneurysm, without rupture; F10.20 Alcohol dependence, uncomplicated
CPT/HCPCS: 71045; 76999; 80048; 80202; 82550; 82552; 82565; 84484; 85025; 87040; 87804; 90732; 93005; 93306; 93458; 99285; C1769; C1887; C1893; J0692; J3370; J7050; Q9967

== ENCOUNTER 2018-05-04 05:09 | Inpatient (IN) ==
[2018-05-04] MEDS ORDERED: Dextrose 50% in Water 50 ML Vial IV.PUSH PRN ×2 (05:43→12:01)
[2018-05-04] MEDS ORDERED: Insulin Regular (For Infusion) 100 UNIT in Sodium Chlor 0.9% Inj 99 ML IV.CONT PRN ×2 (05:43→12:01)
[2018-05-04] MEDS ORDERED: Sodium Chloride 0.9% Irr Bot 1,000 ML, Vancomycin Inj 1,000 MG IRRIGATION SCH ×2 (05:45)
[2018-05-04] MEDS ORDERED: Chlorhexidine 4% Topical 120 APPLIC/120 ML Bottle TOPICAL SCH (05:45)
[2018-05-04] MEDS ORDERED: Chlorhexidine Gluconate 2% 1 Pack (2 Cloths) TOPICAL ONE (05:46)
[2018-05-04] MEDS ORDERED: Vancomycin Inj 1,250 MG in Sodium Chlor 0.9% Inj 250 ML IV.SIG SCH (06:00)
[2018-05-04] MEDS ORDERED: Sodium Chlor 0.9% Inj 500 ML IV.SIG SCH (06:00)
[2018-05-04] MEDS ORDERED: Heparin - SQ 10,000 UNITS/ML Vial ONE ×2 (06:17→06:50)
[2018-05-04] MEDS: Metoprolol Tartrate 25 MG Tablet PO SCH (06:30)
[2018-05-04] MEDS ORDERED: Potassium Chlor 40 mEq Premix 40 MEQ/100 ML PIGGYBACK ONE (07:15)
[2018-05-04] MEDS ORDERED: Calcium Chloride Inj 1 GM/10 ML Syringe ONE (07:15)
[2018-05-04] MEDS ORDERED: Heparin 10,000 UNITS/10 ML Vial (for IV use) ONE (07:15)
[2018-05-04] MEDS ORDERED: Albumin Human 25% Inj 50 ML IV.SIG ONE (07:16)
[2018-05-04] MEDS ORDERED: CUST1000P IRRIGATION ONE (07:18)
[2018-05-04] MEDS ORDERED: Calcium Chloride Inj 1 GM/10 ML Syringe IV.PUSH ONE (07:27)
[2018-05-04] MEDS ORDERED: Dexmedetomidine Inj 200 MCG/2 ML Vial IV.CONT ONE (07:27)
[2018-05-04] MEDS ORDERED: Protamine Sulfate Inj 250 MG/25 ML Vial IV.CONT ONE (07:27)
[2018-05-04] MEDS ORDERED: Lidocaine PF 1% Inj 5 ML Vial OTHER ONE (07:27)
[2018-05-04] MEDS ORDERED: Sodium Chlor 0.9% Inj 500 ML IV.SIG ONE (07:27)
[2018-05-04] MEDS ORDERED: Heparin - SQ 10,000 UNITS/ML Vial OTHER ONE (07:27)
[2018-05-04] MEDS ORDERED: Sodium Chlor 0.9% Inj 200 ML IV.SIG ONE (07:27)
[2018-05-04] MEDS ORDERED: Sodium Chlor 0.9% Inj 250 ML IV.SIG ONE (07:27)
[2018-05-04] MEDS ORDERED: Aminocaproic Acid Inj 5,000 MG/20 ML Vial IV.CONT ONE (07:27)
[2018-05-04] MEDS ORDERED: Phenylephrine/NS 1000 MCG/10ML Syringe IV.PUSH ONE (07:27)
[2018-05-04] MEDS ORDERED: Hypromellose 0.3% Opth Gel 10 GM Bottle EACH EYE ONE (07:27)
--- NOTE | 2018-05-04 11:57 | P.PNCV ---
- Note Subjective/Hospital Course: 68/ male known to Dr Doris arteaga of Aortic valve stenosis , surgery was delayed due to recent rash , seen by dermatology and diagnosed with contact dermatitis , now being admitted for elective Minimally invasive AVR PMH: , Bo's esophagus, recent cellullitus left buttocks ( spider bit sep 2017) , DM, nonobstructive CAD, HLP, Memory deficits, tobacco abuse , + Etoh pt has intolerance to statin Objective: Vital Signs - 24 hr 05/04/18 06:27 Temperature 98.5 F Pulse Rate 65 Respiratory Rate 18 Blood Pressure 150/86 H Pulse Oximetry 98 Labs: Laboratory Results - last 12 hr 05/04/18 06:05 Blood Type A Positive Antibody Screen Negative MTS Gel Crossmatch See Detail
[2018-05-04] MEDS ORDERED: Calcium Chloride Inj 1 GM/10 ML Syringe IV.PUSH PRN (12:01)
[2018-05-04] MEDS ORDERED: Acetaminophen 325 MG Tablet PO PRN (12:01)
[2018-05-04] MEDS ORDERED: Calcium Chloride Inj 1 GM in Sodium Chlor 0.9% Inj 100 ML IV.SIG PRN (12:01)
[2018-05-04] MEDS ORDERED: Acetaminophen 650 MG Supp RECTAL PRN (12:01)
[2018-05-04] MEDS ORDERED: Metoprolol Inj 5 MG/5 ML Vial IV.PUSH PRN (12:01)
[2018-05-04] MEDS ORDERED: Dexmedetomidine Inj 200 MCG in Sodium Chlor 0.9% Inj 48 ML IV.CONT PRN (12:01)
[2018-05-04] MEDS ORDERED: Potassium Chlor 20 mEq Premix 20 MEQ/100 ML PIGGYBACK IV.SIG PRN ×3 (12:01)
[2018-05-04] MEDS ORDERED: Magnesium Sulfate Inj 2 GM in Sodium Chlor 0.9% Inj 96 ML IV.SIG PRN ×4 (12:01)
[2018-05-04] MEDS ORDERED: Clevidipine Inj 25 MG/50 ML VIAL IV.CONT PRN (12:01)
[2018-05-04] MEDS ORDERED: Phenylephrine Inj 40 MG in Sodium Chlor 0.9% Inj 496 ML IV.CONT PRN (12:01)
[2018-05-04] MEDS ORDERED: Post-op Orders (for Pharmacy) OTHER STA (12:01)
[2018-05-04] MEDS ORDERED: RESP: Racemic Epinephrine 2.25% 0.5 ML Neb NEB PRN (12:01)
--- NOTE | 2018-05-04 12:01 | P.DCO ---
- Diagnosis (3) Diabetes mellitus - Home Health Nursing Order: Medical education, Signs/symptoms of disease process, Diabetic education , Wound care and dressing changes, Nursing assessment with vital signs Instructions: Heart and Vascular Surgery patients *Special attention to sternal dressing Mandatory frequency Assess and evaluation, 4 days in a row The next week 3X week 2 times a week for 4 weeks 1 time a week for 5 weeks Schedule Heart and Vascular patients for full 60 day certification period Initial visit Review Open Heart Surgery Discharge Instructions (Sternal precautions, Activity, Elastic hose, Incision care, Driving, Incentive spirometry, Smoking, [place], Work and other) Need Betadine to paint incision Medication reconciliation Importance of follow up care/ check on appointments Make calendar record temperature daily When to call [facility] [place] nurse, review instructions, phone list Incentive Spirometry, demonstration Visit 1- Begin discharge instruction for patient family and/ or caregiver using teach back method- Signs and symptoms of infection Disease characteristics Medicines and side effects Foods and nutrition/ appetite Infection control/ hand washing/ hygiene Visit 2- Continue teaching Discharge instructions- include additional information on smoking cessation , sternal dressing (sternal vac) Visit 3- Continue teaching- Cough and deep breathing, incision monitoring. Choose my plate Visit 4- Continue teaching- Discuss limitations Discuss how they are feeling Discuss progress toward goals Remaining visits- continue teaching and monitoring For any questions please call : Wednesday 8am-5pm Heart & Vascular Surgery Office ( Dr. George & Dr. Powell), After Hours / Nights (5pm -8am) Weekends and Holidays Please call [facility] Cardiac Intermediate Care Unit (CIC) Charge Nurse PREVENA Single Use Negative Wound Therapy System Caregiver Instruction Sheet 1. A Prevena dressing system was applied to the chest incision during surgery , to promote wound healing. It works via a suction device (negative pressure wound therapy) to remove low to moderate levels of exudate (drainage) and infectious materials. We recommend that the device stay in place for up to seven days, from day of surgery. 2. Day of Surgery___/08/09 Day of Removal ___/ 3. The dressing should only be removed by a health resident care spec. Please arrange removal of device to coincide with Home Health visit and or with Nursing staff at Rehab 4. If skin reddening or irritation of skin occurs, or excessive drainage, please notify the Cardiovascular Surgeons office at [phone]. 5. Light showering is permissible; however the pump should be disconnected and placed in safe location, where it will not get wet. The dressing should not be exposed to direct spray or submerged in water. No bath tub / shower only. Ensure the end of the tubing attached to the dressing is facing down so that water does not enter the top of the tube. 6. To remove Prevena dressing: press purple button to turn off device / remove the suction. Then disconnect the tubing from the pump. The fixation strips should be stretched away from the skin and the dressing lifted at one corner and peeled back until it has been fully removed. 7. After removal, it is ok to shower daily using liquid dial soap and clean wash cloth, rinse and pat dry, and leave incision open to air dry. For any concerns regarding Prevena dressing, and or wounds, please contact Hilda Carbone, patient navigator at [phone] or notify the Cardiovascular Surgeons office at [phone]. Incentive spirometry Q1 hr x 10, while awake, also use acapella device hourly whole awake Sternal Breast Bone Precautions: NO pushing or pulling, ( pt must use sternal pillow to support chest with all activities and with coughing ( takes up to 3 months breast bone to heal ) Daily incision care: ok to shower daily, no tub bath. Wash all incisions with liquid dial soap, clean wash cloth to each site, rinse and pat dry. Observe for any signs of infection, such as drainage which is dark yellow, ferguson, green or foul smelling. Immediately report to the surgeon any drainage from the chest incision, or legs, and for any abnormal drainage from the chest tube sites. Notify surgeon if any temp >101.5 degrees F. When specialty dressing removed/ or if you do not have one, continue to shower daily as above, then rinse and pat incision dry and paint with betadine daily x 5 days. Allow steri strips to fall off if you have any. Avoid lotions, creams, salves, oils, etc. for the first month Please see attached forms for additional instructions regarding post Open Heart specialty wound vacuum dressings. KRISH or Prevena , Dressing to be removed by Nursing staff on _05/11/18 F/U appointment: as per DC instructions: PCP in 2 weeks, CV surgeon 2 weeks, It Technical Architect 3-4 weeks For any questions regarding incisions/ dressing / meds / post op care or above Symptoms, Wednesday 8am-5pm Heart & Vascular Surgery Office ( Dr. George & Dr. Powell), After Hours / Nights (5pm -8am) Weekends and Holidays Please call [facility] Cardiac Intermediate Care Unit (CIC) Charge Nurse - Certification I have seen patient Missael Golden on 05/04/18. My clinical findings support the need for the requested home health care services because: Deconditioned with increased weakness I certify that my clinical findings support that this patient is homebound because: Post-op weakness (3) Diabetes mellitus Qualifiers: Diabetes mellitus type: type 2
--- NOTE | 2018-05-04 12:17 | P.OP ---
Date of procedure: 05/04/18 Anesthesia: DIOGENESA Surgeon: Macrina George MD Operation and Findings: PREOPERATIVE DIAGNOSES 1. Severe Aortic Stenosis. 2. Moderate Aortic Insufficiency POSTOPERATIVE DIAGNOSES 1. Severe Aortic Stenosis. 2. Moderate Aortic Insufficiency SURGICAL PROCEDURE 1. Mini-Sternotomy 2. Aortic Valve Replacement with a 23 mm Medtronic Mosaic Cinch tissue valve MIXING MACHINE OPERATOR Sourav Junior ANESTHESIA General endotracheal. NEWSPAPER INSERTER Florinda Morfin CRNA, Michelle Cortez MD PREPARATION ChloraPrep. NEEDLE, SPONGE AND INSTRUMENT COUNT Correct. DRAINS One 24-Irish mediastinal tube. COMPLICATIONS None. INDICATIONS The patient is a 68-year-old pt with severe aortic stenosis and moderate aortic insufficiency, presenting for surgical correction of the above pathology. DESCRIPTION OF PROCEDURE The patient was brought to the operating room and placed supine on the OR table. Following the induction of adequate general endotracheal anesthesia and placement of appropriate monitoring devices, the patient was then prepped and draped in the standard sterile fashion. A 7 cm incision was made overlying the manubrium and the superior aspect of the sternum. Davis-sternotomy was performed upto the 3rd ICS and the sternotomy T-ed at that point. The pericardium was divided in the midline and the cradle created. The patient was systemically heparinized and anticoagulation monitored by serial ACT measurements. Then 2 pursestring sutures of 2-0 Ethibond were placed on the aorta proximal to the takeoff of the innominate artery, another was placed in the right atrial appendage. At this point, aortic and 2-stage venous cannulas were introduced and attached to the arterial and venous components of the bypass circuit respectively. Antegrade cardioplegia cannula and a left ventricular vent, through the right superior pulmonary vein, were also placed. The patient was placed on cardiopulmonary bypass and core cooling initiated to a temperature of 32 degrees centigrade. The crossclamp was applied and 1600 mls of antegrade cardioplegia solution (Assisted HTK) given in an antegrade fashion in addition to topical cooling with slushed saline. Upon achieving adequate diastolic arrest of the heart a transverse aortotomy was performed. The aortic valve was then excised and sent for microbiologic analysis. The valve and annulus were noted to be very heavily calcified. Circumferential decalcification was performed. Horizontal mattress sutures of interrupted 2-0 Ethibond were placed on the aortic annulus with pledgets on the ventricular side. After adequate sizing, a 23 mm Mosaic valve was brought in the surgical field and the sutures passed through the skirt and the valve was situated using the Cor-Knot device. This appeared to be a good fit. Gradual rewarming was initiated and the aortotomy closed in 2 layers. This was with 4-0 Prolene; the 1st layer being horizontal mattress, the 2nd layer being running baseball stitch. The cross clamp was removed and upon achieving normothermic cardiac activity, transesophageal echocardiography revealed a well-situated aortic prosthesis with no evidence of perivalvular leak and no aortic stenosis or aortic regurgitation. Protamine was administered. Decannulation was performed and all sites were inspected for hemostasis. At this point the closure was undertaken. The pericardium was reapproximated in the midline. Two ventricular pacing wires and 1 chest tube placed, and the sternum was reapproximated using stainless steel sternal wires. The musculo-fascial layer was then closed in 3 layers. The patient tolerated the procedure well and was transferred to open heart recovery in stable condition.
[2018-05-04] MEDS: Albumin Human 5% Inj 250 ML IV.SIG PRN ×2 (12:30→15:13)
[2018-05-04] MEDS ORDERED: Albumin Human 5% Inj 250 ML IV.SIG ONE (12:40)
[2018-05-04] MEDS ORDERED: fentaNYL Citrate Inj 250 MCG/5 ML Ampul ONE ×2 (12:47)
[2018-05-04] MEDS ORDERED: RESP: Racemic Epinephrine 2.25% 0.5 ML Neb ONE (14:00)
[2018-05-04] MEDS ORDERED: Ketorolac Inj 30 MG/ML (IVP) Vial IV.PUSH PRN (14:00)
--- NOTE | 2018-05-04 14:01 | XR ---
EXAM DATE: 05/04/2018 1:46 PM EDT AGE/SEX: 68 years / Male INDICATIONS: Post-op aortic valve replacement. CLINICAL DATA: This is the patient's initial encounter. Patient reports that signs and symptoms have been present for 1 day and indicates a pain score of Nonresponsive. MEDICAL/SURGICAL HISTORY: Non-responsive. Non-responsive. COMPARISON: [facility], CHEST 2V PA&LAT, 04/27/2018. . FINDINGS: The patient is post median sternotomy. The endotracheal tube and central venous catheter are in satis factory position. There is a nasogastric tube in good position. There is a second tube overlying the mediastinum which appears to be on the patient's surface. The lungs are clear. The bony structures ar e grossly intact. CONCLUSION: Stable post operative chest. Electronically signed by: Corby Dyer MD 05/04/2018 2:00 PM EDT
[2018-05-04] MEDS ORDERED: RASS Change Order OTHER ONE (15:00)
[2018-05-04] MEDS: fentaNYL Citrate Inj 100 MCG/2 ML Ampul IV.PUSH PRN ×2 (15:26→18:24)
[2018-05-04] MEDS: Vancomycin Inj 1,000 MG in Sodium Chlor 0.9% Inj 250 ML IV.SIG SCH (20:05)
[2018-05-04] MEDS: Morphine Sulfate Inj 2 MG/ML Vial IV.PUSH PRN (20:05)
[2018-05-05] MEDS: Morphine Sulfate Inj 2 MG/ML Vial IV.PUSH PRN (03:02)
--- NOTE | 2018-05-05 05:38 | XR ---
EXAM DATE: 05/05/2018 5:19 AM EDT AGE/SEX: 68 years / Male INDICATIONS: Shortness of breath, possible pulmonary disease. CLINICAL DATA: This is the patient's subsequent encounter. Patient reports that signs and symptoms h ave been present for 2 days and indicates a pain score of 7/10. MEDICAL/SURGICAL HISTORY: Gastroesophageal reflux disease. Diabetes. . AVR. COMPARISON: [facility], CHEST 1V SINGLE AP, 05/04/2018. . FINDINGS: Previous endotracheal tube and nasogastric tube have been removed. Drain overlies central chest. Righ t central line in superior vena cava. Subsegmental basilar airspace disease present similar to prior exam. No significant effusion. No pneumothorax. CONCLUSION: Endotracheal tube and nasogastric tube have been removed. Stable subsegmental basilar airspace diseas e. Electronically signed by: Missael Champion MD 05/05/2018 5:36 AM EDT
[2018-05-05 06:00] LABS: Hematocrit 35.6 % (39.0-51.0); Hemoglobin 11.8 gm/dL (13.0-17.0); Mean Corpuscular HGB Conc 33.1 % (32.0-36.0); Mean Corpuscular Hemoglobin 31.2 pg (27.0-34.0); Mean Corpuscular Volume 94.4 fL (80.0-100.0); Mean Platelet Volume 9.5 fL (7.0-11.0); Platelet Count 123 th/mm3 (150-450); Red Blood Count 3.78 mil/mm3 (4.50-5.90); Red Cell Distribution Width 13.3 % (11.6-17.2); White Blood Count 10.4 th/mm3 (4.0-11.0)
[2018-05-05 06:33] LABS: Calcium 8.2 mg/dL (8.5-10.1); Carbon Dioxide 25.7 meq/L (21.0-32.0); Magnesium 2.2 mg/dL (1.5-2.5); Potassium 3.7 meq/L (3.5-5.1)
[2018-05-05] MEDS ORDERED: Bisacodyl 10 MG Supp RECTAL PRN (08:46)
[2018-05-05] MEDS ORDERED: Sod Phosphate/Sod Biphosphate (Adult) Enema 133 ML Bottle RECTAL PRN (08:46)
[2018-05-05] MEDS ORDERED: Dextrose 50% in Water 50 ML Vial IV.PUSH PRN (08:46)
[2018-05-05] MEDS: Mesalamine 800 MG Tablet DR PO SCH (09:03)
--- NOTE | 2018-05-05 09:06 | P.PNCV ---
- Note Subjective/Hospital Course: 68/ male known to Dr Doris arteaga of Aortic valve stenosis , surgery was delayed due to recent rash , seen by dermatology and diagnosed with contact dermatitis , now being admitted for elective Minimally invasive AVR PMH: , Bo's esophagus, recent cellullitus left buttocks ( spider bit sep 2017) , DM, nonobstructive CAD, HLP, Memory deficits, tobacco abuse , + Etoh pt has intolerance to statin surgery: 05/04 1. Mini-Sternotomy 2. Aortic Valve Replacement with a 23 mm Medtronic Mosaic Cinch tissue valve extubated after surgery crystalloid 2500cc, 500cc cell saver 05/05 doing well, up in chair on room air need aggressive pulm toileting nebs, ezpap start low dose BB, transfer to stepdown Objective: Vital Signs - 24 hr 05/04/18 12:30 05/04/18 13:55 05/04/18 14:00 Temperature 98.3 F Pulse Rate 79 79 Respiratory Rate 12 18 Blood Pressure 109/51 L Pulse Oximetry 99 94 L 05/04/18 15:00 05/04/18 16:22 05/04/18 16:49 Temperature 98.9 F Pulse Rate 67 Respiratory Rate 14 14 Blood Pressure 103/51 L Pulse Oximetry 98 99 05/04/18 16:50 05/04/18 19:00 05/04/18 20:00 Temperature 97.9 F Pulse Rate 67 67 66 Respiratory Rate 18 14 14 Blood Pressure 93/46 L Pulse Oximetry 05/04/18 20:15 05/04/18 20:19 05/04/18 23:00 Temperature 99.6 F Pulse Rate 76 76 Respiratory Rate 22 14 Blood Pressure 100/43 L Pulse Oximetry 99 05/05/18 03:00 05/05/18 04:03 05/05/18 08:57 Temperature 98.7 F Pulse Rate 84 75 78 Respiratory Rate 16 22 16 Blood Pressure 113/54 L Pulse Oximetry 96 GENERAL: A&O x 3 SKIN: Warm and dry. prevena dressing to chest HEAD: Normocephalic. EYES: No scleral icterus. No injection or drainage. NECK: Supple, trachea midline. No JVD or lymphadenopathy. CARDIOVASCULAR: Regular rate and rhythm without murmurs, gallops, or rubs. RESPIRATORY: Breath sounds equal bilaterally. No accessory muscle use. slightly diminished in bases , chest tube to wall suction, no air leak/ drained 70cc/ 12 hrs GASTROINTESTINAL: Abdomen soft, non-tender, nondistended. MUSCULOSKELETAL: No cyanosis, or edema. BACK: Nontender without obvious deformity. No CVA tenderness. Labs: Laboratory Results - last 12 hr 05/04/18 05/04/18 05/05/18 22:03 23:18 01:04 WBC RBC Hgb Hct MCV MCH MCHC RDW Plt Count MPV Sodium Potassium Chloride Carbon Dioxide Anion Gap BUN Creatinine Estimated GFR POC Glucose 131 H 170 H 128 H Random Glucose Calcium Magnesium 05/05/18 05/05/18 05/05/18 02:54 04:34 05:30 WBC 10.4 RBC 3.78 L Hgb 11.8 L Hct 35.6 L MCV 94.4 MCH 31.2 MCHC 33.1 RDW 13.3 Plt Count 123 L D MPV 9.5 Sodium Potassium Chloride Carbon Dioxide Anion Gap BUN Creatinine Estimated GFR POC Glucose 102 183 H Random Glucose Calcium Magnesium 05/05/18 05/05/18 05/05/18 05:30 05:34 07:45 WBC RBC Hgb Hct MCV MCH MCHC RDW Plt Count MPV Sodium 139 Potassium 3.7 Chloride 103 Carbon Dioxide 25.7 Anion Gap 10 BUN 11 Creatinine 0.99 Estimated GFR 75 L POC Glucose 205 H 115 H Random Glucose 202 H Calcium 8.2 L Magnesium 2.2 Result Diagrams: 05/05/18 05:30 05/05/18 05:30 - Plan (2) Aortic valve replaced Plan: on ASA , BB , plavix pulm toileting nebs ezpap OOB/ ambulate leave chest tube in increase pain meds (3) Diabetes mellitus Plan: diabetic diet, diet controlled at home, will check HGB A1C (3) Diabetes mellitus Qualifiers: Diabetes mellitus type: type 2
[2018-05-05] MEDS: Multivitamin/Minerals Therapeutic Tablet PO SCH (09:30)
[2018-05-05] MEDS: Metoprolol Tartrate 25 MG Tablet PO SCH ×2 (09:31→20:32)
[2018-05-05] MEDS: Insulin NovoLOG Aspart Correctional Sugar Inj SQ SCH ×4 (10:03→21:38)
--- NOTE | 2018-05-05 10:22 | P.DIET ---
Nutritional Evaluation Screening comments: MDC for diet education s/p mini AVR on 05/04 received today. Patient Navigator to provide education. Consult RD if complexities with diet education arise.
[2018-05-05] MEDS: Vancomycin Inj 1,000 MG in Sodium Chlor 0.9% Inj 250 ML IV.SIG SCH ×2 (10:53→20:35)
[2018-05-05 16:24] LABS: Hemoglobin A1c 7.9 % (4.3-6.0)
--- NOTE | 2018-05-05 18:47 | ECG ---
Date Performed: 05/05/2018 Time Performed: 04:47:52 PTAGE: 68 years EKG: Sinus rhythm Normal ECG NO PREVIOUS TRACING DOCTOR: Walter Burnett Interpretating Date/Time 05/05/2018 18:46:16
[2018-05-05] MEDS: Docusate Sodium 100 MG Capsule PO SCH (20:30)
[2018-05-06] MEDS: Insulin NovoLOG Aspart Correctional Sugar Inj SQ SCH ×6 (02:33→21:40)
[2018-05-06 05:22] LABS: Baso # (Auto) 0.1 th/mm3 (0.0-0.2); Baso % (Auto) 0.5 % (0.0-2.0); Eos # (Auto) 0.1 th/mm3 (0.0-0.4); Eos % (Auto) 1.1 % (0.0-4.0); Hematocrit 35.9 % (39.0-51.0); Hemoglobin 11.7 gm/dL (13.0-17.0); Lymph # (Auto) 0.9 th/mm3 (1.0-4.8); Lymph % (Auto) 7.5 % (9.0-44.0); Mean Corpuscular HGB Conc 32.7 % (32.0-36.0); Mean Corpuscular Hemoglobin 30.7 pg (27.0-34.0); Mean Corpuscular Volume 94.1 fL (80.0-100.0); Mean Platelet Volume 9.6 fL (7.0-11.0); Mono # (Auto) 1.1 th/mm3 (0.0-0.9); Mono % (Auto) 9.1 % (0.0-8.0); Neut # (Auto) 9.8 th/mm3 (1.8-7.7); Neut % (Auto) 81.8 % (16.0-70.0); Platelet Count 123 th/mm3 (150-450); Red Blood Count 3.82 mil/mm3 (4.50-5.90); Red Cell Distribution Width 13.5 % (11.6-17.2)
[2018-05-06 05:43] LABS: Calcium 8.2 mg/dL (8.5-10.1); Carbon Dioxide 29.8 meq/L (21.0-32.0); Potassium 3.8 meq/L (3.5-5.1)
[2018-05-06] MEDS: Metoprolol Tartrate 25 MG Tablet PO SCH ×3 (08:43→21:40)
[2018-05-06] MEDS: Multivitamin/Minerals Therapeutic Tablet PO SCH (08:43)
[2018-05-06] MEDS: Docusate Sodium 100 MG Capsule PO SCH ×2 (08:43→21:46)
[2018-05-06] MEDS: Polyethylene Glycol 3350 17 GM Packet PO SCH (08:43)
[2018-05-06] MEDS: Mesalamine 800 MG Tablet DR PO SCH (08:43)
[2018-05-06] MEDS ORDERED: Ketorolac Inj 30 MG/ML (IVP) Vial IV.PUSH SCH (09:00)
--- NOTE | 2018-05-06 12:10 | P.PNCV ---
- Note Subjective/Hospital Course: 68/ male known to Dr Doris arteaga of Aortic valve stenosis , surgery was delayed due to recent rash , seen by dermatology and diagnosed with contact dermatitis , now being admitted for elective Minimally invasive AVR / EF 50% PMH: , Bo's esophagus, recent cellullitus left buttocks ( spider bit sep 2017) , DM, nonobstructive CAD, HLP, Memory deficits, tobacco abuse , + Etoh pt has intolerance to statin surgery: 05/04 1. Mini-Sternotomy 2. Aortic Valve Replacement with a 23 mm Medtronic Mosaic Cinch tissue valve extubated after surgery crystalloid 2500cc, 500cc cell saver 05/05 doing well, up in chair on room air need aggressive pulm toileting nebs, ezpap start low dose BB, transfer to stepdown 05/06 doing well on room air VSS , chest tube removed without difficulty pulm toileting GI motility meds given eval for possible dc home in am Objective: Vital Signs - 24 hr 05/05/18 13:00 05/05/18 14:00 05/05/18 15:00 Temperature 98.1 F Pulse Rate 80 78 80 Respiratory Rate 18 Blood Pressure 107/52 L Pulse Oximetry 96 05/05/18 16:00 05/05/18 17:00 05/05/18 18:00 Temperature Pulse Rate 78 78 82 Respiratory Rate Blood Pressure Pulse Oximetry 05/05/18 19:00 05/05/18 20:00 05/05/18 20:03 Temperature 99.1 F Pulse Rate 85 96 H 85 Respiratory Rate 20 14 Blood Pressure 127/68 Pulse Oximetry 96 95 95 05/05/18 21:00 05/05/18 21:49 05/05/18 22:42 Temperature 99 F Pulse Rate 70 88 81 Respiratory Rate 18 Blood Pressure 146/71 H Pulse Oximetry 98 05/05/18 23:00 05/06/18 00:00 05/06/18 01:00 Temperature Pulse Rate 83 80 80 Respiratory Rate Blood Pressure Pulse Oximetry 05/06/18 02:00 05/06/18 02:59 05/06/18 03:00 Temperature 98.4 F Pulse Rate 79 79 81 Respiratory Rate 20 Blood Pressure 147/73 H Pulse Oximetry 95 05/06/18 03:36 05/06/18 04:00 05/06/18 05:00 Temperature Pulse Rate 81 73 Respiratory Rate 16 Blood Pressure Pulse Oximetry 05/06/18 06:00 05/06/18 06:25 05/06/18 07:00 Temperature 98.3 F Pulse Rate 80 76 Respiratory Rate 18 18 Blood Pressure 125/73 Pulse Oximetry 96 05/06/18 07:44 05/06/18 07:53 05/06/18 07:54 Temperature Pulse Rate 72 78 Respiratory Rate 16 Blood Pressure Pulse Oximetry 97 96 96 05/06/18 09:00 05/06/18 09:59 05/06/18 10:01 Temperature Pulse Rate 92 H 76 Respiratory Rate 18 Blood Pressure Pulse Oximetry 05/06/18 10:02 05/06/18 10:59 05/06/18 11:00 Temperature 98.6 F Pulse Rate 75 75 Respiratory Rate 18 18 Blood Pressure 106/62 Pulse Oximetry 96 05/06/18 11:36 Temperature Pulse Rate 69 Respiratory Rate Blood Pressure Pulse Oximetry GENERAL: A&O x 3 SKIN: Warm and dry. prevena dressing in place to chest HEAD: Normocephalic. EYES: No scleral icterus. No injection or drainage. NECK: Supple, trachea midline. No JVD or lymphadenopathy. CARDIOVASCULAR: Regular rate and rhythm without murmurs, gallops, or rubs. RESPIRATORY: Breath sounds equal bilaterally. No accessory muscle use. diminished in bases, otherwise cta GASTROINTESTINAL: Abdomen soft, non-tender, nondistended. MUSCULOSKELETAL: No cyanosis, or edema. BACK: Nontender without obvious deformity. No CVA tenderness. Labs: Laboratory Results - last 12 hr 05/06/18 05/06/18 05/06/18 02:27 05:10 05:10 WBC 12.0 H RBC 3.82 L Hgb 11.7 L Hct 35.9 L MCV 94.1 MCH 30.7 MCHC 32.7 RDW 13.5 Plt Count 123 L MPV 9.6 Neut % (Auto) 81.8 H Lymph % (Auto) 7.5 L [place] % (Auto) 9.1 H Eos % (Auto) 1.1 Baso % (Auto) 0.5 Neut # (Auto) 9.8 H Lymph # (Auto) 0.9 L [place] # (Auto) 1.1 H Eos # (Auto) 0.1 Baso # (Auto) 0.1 WBC Differential . Differential Comment Auto diff final Sodium 138 Potassium 3.8 Chloride 102 Carbon Dioxide 29.8 Anion Gap 6 BUN 12 Creatinine 1.03 Estimated GFR 72 L POC Glucose 167 H Random Glucose 124 H Calcium 8.2 L Magnesium 2.0 05/06/18 05/06/18 05/06/18 05:49 08:54 11:21 WBC RBC Hgb Hct MCV MCH MCHC RDW Plt Count MPV Neut % (Auto) Lymph % (Auto) [place] % (Auto) Eos % (Auto) Baso % (Auto) Neut # (Auto) Lymph # (Auto) [place] # (Auto) Eos # (Auto) Baso # (Auto) WBC Differential Differential Comment Sodium Potassium Chloride Carbon Dioxide Anion Gap BUN Creatinine Estimated GFR POC Glucose 128 H 220 H 173 H Random Glucose Calcium Magnesium Result Diagrams: 05/06/18 05:10 05/06/18 05:10 Telemetry: NSR - Plan (2) Aortic valve replaced Plan: on ASA , BB , plavix pulm toileting nebs ezpap OOB/ ambulate chest tube removed without difficulty eval for dc home tomorrow (3) Diabetes mellitus Plan: diabetic diet, diet controlled at home, will check HGB A1C HGB A1C 7.9 will add metformin consult coding educator will need outpt f/u (3) Diabetes mellitus Qualifiers: Diabetes mellitus type: type 2
[2018-05-06] MEDS ORDERED: Mag Sulf 1 gm/100 ml Premix 100 ML IV.SIG ONE (13:00)
--- NOTE | 2018-05-06 14:18 | ECG ---
Date Performed: 05/05/2018 Time Performed: 18:26:16 PTAGE: 68 years EKG: Sinus rhythm rSr'(V1) Consider anteroseptal AR, age undetermined ST junctional depression is nonspecific Borderli ne ECG PREVIOUS TRACING : 05/05/2018 04.47 DOCTOR: Angelito Dodd Interpretating Date/Time 05/06/2018 14:17:14
--- NOTE | 2018-05-06 14:19 | P.DS ---
Date of admission: 05/04/18 08:41 Primary care physician: Augie Fan MD, PhD Attending physician on discharge: Ana Laura Powell Anticipated date of discharge: 05/07/18 Brief History from admission: 68/ male known to Dr Doris arteaga of Aortic valve stenosis , surgery was delayed due to recent rash , seen by dermatology and diagnosed with contact dermatitis , now being admitted for elective Minimally invasive AVR / EF 50% PMH: , Bo's esophagus, recent cellullitus left buttocks ( spider bit sep 2017) , DM, nonobstructive CAD, HLP, Memory deficits, tobacco abuse , + Etoh pt has intolerance to statin DS: Diagnosis - Discharge Diagnosis (1) Aortic stenosis Status: Acute (2) Aortic valve replaced Status: Acute (3) Diabetes mellitus Status: Acute DS: Medications - Discharge Medications Prescriptions: aspirin 81 mg PO DAILY #30 tab clopidogrel [Plavix] 75 mg PO DAILY #30 tab diabetic supplies, miscellan. [Guardian RT Starter Kit] #1 each docusate sodium [DOK] 100 mg PO BID #60 cap hydrocodone-acetaminophen 1 tab PO Q4H PRN #40 tab PRN Reason: Pain Scale 1 To 5 metformin [Glucophage] 500 mg PO BIDPC #60 tab metoprolol tartrate 12.5 mg PO BID #60 tab dfhxyujv-pazd-EG-calcium-mins [Thera M Plus (ferrous fumarat)] 1 tab PO DAILY # 30 tab DS: Summary Hospital Course: surgery: 05/04 1. Mini-Sternotomy 2. Aortic Valve Replacement with a 23 mm Medtronic Mosaic Cinch tissue valve extubated after surgery crystalloid 2500cc, 500cc cell saver 05/05 doing well, up in chair on room air need aggressive pulm toileting nebs, ezpap start low dose BB, transfer to stepdown 05/06 doing well on room air VSS , chest tube removed without difficulty pulm toileting GI motility meds given HGB A1c 7.9 start metformin will dc home with glucometer and kit pt to check BGM bid with log / and follow up with PCP - Time Spent with Patient Total time spent providing and/or coordinating discharge services: Greater than 30 minutes - Quality: AMI Clinical Trial Participant: No Exam Vital signs: Vital Signs 05/05/18 15:00 05/05/18 16:00 05/05/18 17:00 Temperature 98.1 F Pulse Rate 80 78 78 Respiratory Rate 18 Blood Pressure 107/52 L Pulse Oximetry 96 05/05/18 18:00 05/05/18 19:00 05/05/18 20:00 Temperature 99.1 F Pulse Rate 82 85 96 H Respiratory Rate 20 Blood Pressure 127/68 Pulse Oximetry 96 95 05/05/18 20:03 05/05/18 21:00 05/05/18 21:49 Temperature Pulse Rate 85 70 88 Respiratory Rate 14 Blood Pressure Pulse Oximetry 95 05/05/18 22:42 05/05/18 23:00 05/06/18 00:00 Temperature 99 F Pulse Rate 81 83 80 Respiratory Rate 18 Blood Pressure 146/71 H Pulse Oximetry 98 05/06/18 01:00 05/06/18 02:00 05/06/18 02:59 Temperature 98.4 F Pulse Rate 80 79 79 Respiratory Rate 20 Blood Pressure 147/73 H Pulse Oximetry 95 05/06/18 03:00 05/06/18 03:36 05/06/18 04:00 Temperature Pulse Rate 81 81 Respiratory Rate 16 Blood Pressure Pulse Oximetry 05/06/18 05:00 05/06/18 06:00 05/06/18 06:25 Temperature Pulse Rate 73 80 Respiratory Rate 18 Blood Pressure Pulse Oximetry 05/06/18 07:00 05/06/18 07:44 05/06/18 07:53 Temperature 98.3 F Pulse Rate 76 72 78 Respiratory Rate 18 16 Blood Pressure 125/73 Pulse Oximetry 96 97 96 05/06/18 07:54 05/06/18 09:00 05/06/18 09:59 Temperature Pulse Rate 92 H 76 Respiratory Rate Blood Pressure Pulse Oximetry 96 05/06/18 10:01 05/06/18 10:02 05/06/18 10:59 Temperature Pulse Rate 75 Respiratory Rate 18 18 Blood Pressure Pulse Oximetry 05/06/18 11:00 05/06/18 11:36 05/06/18 13:00 Temperature 98.6 F Pulse Rate 75 69 78 Respiratory Rate 18 Blood Pressure 106/62 Pulse Oximetry 96 05/06/18 13:33 Temperature Pulse Rate 77 Respiratory Rate 16 Blood Pressure Pulse Oximetry Intake & Output 05/05/18 05/06/18 05/06/18 18:59 06:59 18:59 Intake Total 1410 / 1410 1210 / 1210 Output Total 815 / 815 1330 / 1330 Balance 595 / 595 -120 / -120 Intake: IV 450 / 450 250 / 250 NovoLIN R (IV Infusion) 100 0 / 0 UNIT In NS Inj 99 ML @ 3 UNITS/ HR 3 mls/hr IV.CONT TITRATE PRN Rx#:[id number] Ofirmev Inj 1,000 mg In 100 ml 100 / 100 @ 400 mls/hr IV.SIG Q6H HARDEEP Rx# :[id number] Vancomycin Inj 1,000 MG In NS 250 / 250 250 / 250 Inj 250 ML @ 250 mls/hr IV.SIG Q12H HARDEEP Rx#:[id number] Oral 960 / 960 960 / 960 Output: Urine 725 / 725 1250 / 1250 Chest Tube Drainage 90 / 90 80 / 80 Mediastinal 90 / 90 80 / 80 Other: Date of Last Bowel Movement 05/03/18 05/03/18 - Constitutional no acute distress - Routine HEENT Exam Head: Present: normocephalic Eye: Present: EOMI, PERRL, normal accommodation - Routine Neck Exam Present: supple, full ROM - Routine Chest/Breast/Axilla Exam Chest wall: Present: tenderness - Routine Respiratory Exam Present: CTA bilaterally - Routine Abdominal Exam Present: soft, normoactive bowel sounds - Routine Extremities Exam Present: full ROM, pulses intact, normal capillary refill - Routine Skin Exam Present: intact, wounds Comments: prevena dressing to chest - Routine Neurological Exam Present: alert, oriented X3, CN II-XII intact, normal reflexes Results Procedures completed during hospitalization: 05/04 SURGICAL PROCEDURE 1. Mini-Sternotomy 2. Aortic Valve Replacement with a 23 mm Medtronic Mosaic Cinch tissue valve Pending studies at discharge: Pending at discharge 05/04/18 07:28 Surgical [PTH] Routine Labs on day of discharge: Labs from last 24 hours 05/06/18 05/06/18 05/06/18 11:21 08:54 05:49 WBC RBC Hgb Hct MCV MCH MCHC RDW Plt Count MPV Neut % (Auto) Lymph % (Auto) [place] % (Auto) Eos % (Auto) Baso % (Auto) Neut # (Auto) Lymph # (Auto) [place] # (Auto) Eos # (Auto) Baso # (Auto) WBC Differential Differential Comment Sodium Potassium Chloride Carbon Dioxide Anion Gap BUN Creatinine Estimated GFR POC Glucose 173 H 220 H 128 H Random Glucose Hemoglobin A1c Calcium Magnesium 05/06/18 05/06/18 05/06/18 05:10 05:10 02:27 WBC 12.0 H RBC 3.82 L Hgb 11.7 L Hct 35.9 L MCV 94.1 MCH 30.7 MCHC 32.7 RDW 13.5 Plt Count 123 L MPV 9.6 Neut % (Auto) 81.8 H Lymph % (Auto) 7.5 L [place] % (Auto) 9.1 H Eos % (Auto) 1.1 Baso % (Auto) 0.5 Neut # (Auto) 9.8 H Lymph # (Auto) 0.9 L [place] # (Auto) 1.1 H Eos # (Auto) 0.1 Baso # (Auto) 0.1 WBC Differential . Differential Comment Auto diff final Sodium 138 Potassium 3.8 Chloride 102 Carbon Dioxide 29.8 Anion Gap 6 BUN 12 Creatinine 1.03 Estimated GFR 72 L POC Glucose 167 H Random Glucose 124 H Hemoglobin A1c Calcium 8.2 L Magnesium 2.0 05/05/18 05/05/18 05/05/18 20:06 17:38 05:30 WBC RBC Hgb Hct MCV MCH MCHC RDW Plt Count MPV Neut % (Auto) Lymph % (Auto) [place] % (Auto) Eos % (Auto) Baso % (Auto) Neut # (Auto) Lymph # (Auto) [place] # (Auto) Eos # (Auto) Baso # (Auto) WBC Differential Differential Comment Sodium Potassium Chloride Carbon Dioxide Anion Gap BUN Creatinine Estimated GFR POC Glucose 176 H 238 H Random Glucose Hemoglobin A1c 7.9 H Calcium Magnesium - Impressions ITS Impressions Chest X-Ray 05/05/18 05:00 CONCLUSION: Endotracheal tube and nasogastric tube have been removed. Stable subsegmental basilar airspace disease. Discharge Plan - Discharge Disposition Patient Disposition: Disch W/Home Health Service - Discharge Condition Condition: Good - Discharge Details Anticipated Discharge Date: 05/07/18 Discharge Comment: ok to discharge after evaluated by Dr Powell - Physicians Team Primary Care Provider: Augie Fan Attending Provider: Macrina George Other Providers: [facility],Agency - Rxs /Orders / Referrals /Forms Prescriptions: New aspirin 81 mg Tablet,Chewable 81 mg PO DAILY Qty: 30 RF: 2 clopidogrel [Plavix] 75 mg Tablet 75 mg PO DAILY Qty: 30 RF: 2 docusate sodium [DOK] 100 mg Capsule 100 mg PO BID Qty: 60 RF: 0 hydrocodone-acetaminophen 5-325 mg Tablet 1 tab PO Q4H PRN (Reason: Pain Scale 1 To 5) Qty: 40 RF: 0 metformin [Glucophage] 500 mg Tablet 500 mg PO BIDPC Qty: 60 RF: 1 metoprolol tartrate 25 mg Tablet 12.5 mg PO BID Qty: 60 RF: 2 yodugafd-lrlo-QC-calcium-mins [Thera M Plus (ferrous fumarat)] 9 mg iron-400 mcg Tablet 1 tab PO DAILY Qty: 30 RF: 2 (DME) diabetic supplies, miscellan. [Guardian RT Starter Kit] Kit Qty: 1 RF: 1 Continue cholecalciferol (vitamin D3) [Vitamin D3] 1,000 unit Capsule 1 cap PO DAILY diphenhydramine HCl [Unisom Sleepgels] 50 mg Capsule 100 mg PO HS PRN (Reason: Insomnia) hydrocortisone [Preparation H Hydrocortisone] 1 % Cream 1 applic TOPICAL BID mesalamine [Asacol HD] 800 mg Tablet,Delayed Release (Dr/Ec) 800 mg PO DAILY pantoprazole 40 mg Tablet,Delayed Release (Dr/Ec) 40 mg PO DAILY Discontinued varenicline [Chantix] 1 mg Tablet 1 mg PO BID Referrals: Augie Fan MD, PhD [Primary Care Provider] - See Instructions - Discharge Instructions Patient Printed Instructions: Aortic Valve Replacement (DC) Additional Instructions: PREVENA Single Use Negative Wound Therapy System Caregiver Instruction Sheet 1. A Prevena dressing system was applied to the chest incision during surgery , to promote wound healing. It works via a suction device (negative pressure wound therapy) to remove low to moderate levels of exudate (drainage) and infectious materials. We recommend that the device stay in place for up to seven days, from day of surgery. 2. Day of Surgery__05/04/18 Day of Removal ____05/11/18 3. The dressing should only be removed by a health intensive care unit nurse. Please arrange removal of device to coincide with Home Health visit and or with Nursing staff at Rehab 4. If skin reddening or irritation of skin occurs, or excessive drainage, please notify the Cardiovascular Surgeons office at [phone]. 5. Light showering is permissible; however the pump should be disconnected and placed in safe location, where it will not get wet. The dressing should not be exposed to direct spray or submerged in water. No bath tub / shower only. Ensure the end of the tubing attached to the dressing is facing down so that water does not enter the top of the tube. 6. To remove Prevena dressing: press purple button to turn off device / remove the suction. Then disconnect the tubing from the pump. The fixation strips should be stretched away from the skin and the dressing lifted at one corner and peeled back until it has been fully removed. 7. After removal, it is ok to shower daily using liquid dial soap and clean wash cloth, rinse and pat dry, and leave incision open to air dry. For any concerns regarding Prevena dressing, and or wounds, please contact Hilda Carbone, patient navigator at [phone] or notify the Cardiovascular Surgeons office at [phone]. Incentive spirometry Q1 hr x 10, while awake, also use acapella device hourly whole awake Sternal Breast Bone Precautions: NO pushing or pulling, ( pt must use sternal pillow to support chest with all activities and with coughing ( takes up to 3 months breast bone to heal ) Daily incision care: ok to shower daily, no tub bath. Wash all incisions with liquid dial soap, clean wash cloth to each site, rinse and pat dry. Observe for any signs of infection, such as drainage which is dark yellow, ferguson, green or foul smelling. Immediately report to the surgeon any drainage from the chest incision, or legs, and for any abnormal drainage from the chest tube sites. Notify surgeon if any temp >101.5 degrees F. When specialty dressing removed/ or if you do not have one, continue to shower daily as above, then rinse and pat incision dry and paint with betadine daily x 5 days. Allow steri strips to fall off if you have any. Avoid lotions, creams, salves, oils, etc. for the first month Please see attached forms for additional instructions regarding post Open Heart specialty wound vacuum dressings. KRISH or Prevena , Dressing to be removed by Nursing staff on __05/11/18 F/U appointment: as per DC instructions: PCP in 2 weeks, CV surgeon 2 weeks, [facility]utter 3-4 weeks For any questions regarding incisions/ dressing / meds / post op care or above Symptoms, Wednesday 8am-5pm Heart & Vascular Surgery Office ( Dr. George & Dr. Powell), After Hours / Nights (5pm -8am) Weekends and Holidays Please call [facility] Cardiac [facility] ([facility]) Charge Nurse
[2018-05-06] MEDS: Ketorolac Inj 30 MG/ML (IVP) Vial IV.PUSH SCH ×2 (16:44→21:41)
[2018-05-07] MEDS: Insulin NovoLOG Aspart Correctional Sugar Inj SQ SCH ×3 (00:45→08:06)
[2018-05-07] MEDS: Ketorolac Inj 30 MG/ML (IVP) Vial IV.PUSH SCH (04:12)
--- NOTE | 2018-05-07 05:24 | XR ---
EXAM DATE: 05/07/2018 4:22 AM EDT AGE/SEX: 68 years / Male INDICATIONS: Shortness of breath, possible pneumothorax. CLINICAL DATA: This is the patient's subsequent encounter. Patient reports that signs and symptoms h ave been present for 4 - 6 days and indicates a pain score of 3/10. MEDICAL/SURGICAL HISTORY: Gastroesophageal reflux disease. Diabetes. . AVR. COMPARISON: [facility], CHEST 1V SINGLE AP, 05/05/2018. . FINDINGS: Stable right IJ central line. Lungs are clear. Stable postsurgical features of median sternotomy and there is cardiac surgery. Cardiomediastinal contours are stable. Bony thorax is intact. CONCLUSION: 1. No pneumothorax. 2. Lungs are clear. Electronically signed by: Dereje Castellanos MD 05/07/2018 5:23 AM EDT
[2018-05-07] MEDS: Mesalamine 800 MG Tablet DR PO SCH (08:11)
[2018-05-07] MEDS: Multivitamin/Minerals Therapeutic Tablet PO SCH (08:11)
[2018-05-07] MEDS: Metoprolol Tartrate 25 MG Tablet PO SCH (08:11)
[2018-05-07] MEDS: Docusate Sodium 100 MG Capsule PO SCH (08:12)
[2018-05-07] MEDS: Polyethylene Glycol 3350 17 GM Packet PO SCH (08:12)
[2018-05-07] MEDS ORDERED: Insulin NovoLOG Aspart Correctional Sugar Inj SQ SCH (12:00)
== END 2018-05-07 12:17 | disposition home health service (06) ==
LOC: HSDC 05:09 → EDSTATUS 07:30 → HSDI 08:41 → HCVI 12:37 → HCPC 05-05 10:00
PROVIDERS: ADMIT Thoracic Surgery (Cardiothoracic Vascular Surgery); ATTEND Thoracic Surgery (Cardiothoracic Vascular Surgery)
PROC: MINIAVR (2018-05-04 07:27)